=== PATIENT | female | born 1985 | race Caucasian/White ===

== ENCOUNTER 2019-12-30 18:10 | Inpatient (IN) | payer SELFPAY ==
[~2019-12-30] VITALS: Ht 162.6 cm; Wt 50.3 kg
[2019-12-30] MEDS ORDERED: ADDERALL 10 MG10 MG (18:16)
[2019-12-30] MEDS ORDERED: AMBIEN10 MG PO (18:16)
[2019-12-30] MEDS ORDERED: SODIUM CHLORIDE 0.9% 1000ML 1,000 ML IV ONE ×2 (18:30)
--- NOTE | 2019-12-30 18:32 | Emergency Department Note ---
History of Present Illnes History of Present Illness Chief Complaint: COVID PUI History of Present Illness This is a 34 year old femaleALLED 911 FROM HOME FOR COVID SYMPTOMS GOING ON FOR 4 WKS. PT INCREDIBLY PALE, EMS STATES IN DAYLIGHT PT APPEARED JAUNDICE. PT AAOX4. PT STATES HX OF ANEMIA THAT HAS REQUIRES BLOOD TRANSFUSIONS. HX OF GASTRIC BYPASS 8 YRS AGO. PT HYPOTN ON SCENE OF 80/50'S . PT REPORTS SHE HAS BEEN ILL FOR ABOUT 3 TO 4 WEEKS WITH COUGH, DECREASED APPETITE, NOT EATING OR DRINKING, ALSO REPORTS SHE STOOD UP TODAY AND COLLAPSED TO FLOOR WHICH IS WHY SHE CALLED EMS. 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 Arrival Mode: [facility] Treatment JOURNEYMAN MECHANIC: IV, See EMS Report Additional Treatment JOURNEYMAN MECHANIC: 20 LEFT AC Onset (how long ago): week(s) (3) Location: ALL OVER Quality: WEAKNESS, COUGH, DECREASED APPETITE Radiation: Reports non-radiation Severity: severe Onset quality: gradual Duration (how long): week(s) (3) Timing of current episode: constant Progression: worsening Chronicity: recurrent Context: Reports recent illness (COUGH, ); Denies recent surgery, Denies trauma/injury Relieving factors: none Exacerbating factors: movement Associated symptoms: Reports cough Treatments prior to arrival: none Past Medical/Family History Physician Review I have reviewed the patient's past medical and family history. Any updates have been documented here. Past Medical History Recent Fever: No Clinical Suspicion of Infectio: No New/Unexplained Change in Ment: No Past Medical History: Hypertension, Anemia Other Medical History: ADHD Past Surgical History: Bariatric Surgery Other Surgery: GASTRIC BYPASS 2011 Social History Smoking Cessation: Never Smoker Alcohol Use: None Any Illegal Drug Use: No Physically hurt or threatened: No Family History Family history of heart diseas: No Review of Systems Review of Systems Constitutional: Reports as per HPI EENTM: Reports no symptoms Cardiovascular: Reports no symptoms Respiratory: Reports as per HPI Gastrointestinal: Reports no symptoms Genitourinary: Reports no symptoms Musculoskeletal: Reports no symptoms Integumentary: Reports no symptoms Neurological: Reports as per HPI Psychological: Reports no symptoms Endocrine: Reports no symptoms Hematological/Lymphatic: Reports no symptoms Physical Exam Related Data Allergies: Coded Allergies: imipenem (Verified Allergy, Intermediate, anemia, 12/30/19) Triage Vital Signs Vital Signs Date Time Temp Pulse Resp B/P (MAP) Pulse Ox O2 Delivery O2 Flow Rate FiO2 12/30/19 18:12 99.3 78 16 84/54 100 Room Air Vital signs reviewed: Yes Physical Exam CONSTITUTIONAL Constitutional: Present well-developed, Present distressed (MILD), Present ill appearing, Present other (MALNOURISHED, EMACIATED) HENT HENT: Present normocephalic, Present atraumatic, Present mucosae dry (SEVERE), Present nose normal HENT L/R: Present left ext ear normal, Present right ext ear normal EYES Eyes: Reports PERRL, Reports other (SEVERE PALE CONJUCTIVA) NECK Neck: Present ROM normal PULMONARY Pulmonary: Present effort normal, Present breath sounds normal CARDIOVASCULAR Cardiovascular: Present regular rhythm, Present heart sounds normal, Present capillary refill normal, Present normal rate GASTROINTESTINAL Abdominal: Present soft, Present nontender, Present bowel sounds normal GENITOURINARY Genitourinary: Present exam deferred SKIN Skin: Present warm, Present dry, Present pale (SEVERE) MUSCULOSKELETAL Musculoskeletal: Present ROM normal NEUROLOGICAL Neurological: Present alert, Present oriented x 3, Present no gross motor or sensory deficits PSYCHOLOGICAL Psychological: Present mood/affect normal, Present judgement normal Results Laboratory Laboratory Laboratory Tests Test 12/30/19 20:08 12/30/19 18:43 12/30/19 18:26 Urine Color Yellow (YELLOW) Urine Clarity Turbid (CLEAR) Urine pH 5.5 (5 - 7) Urine Specific [place] 1.020 (1.010-1.025) Urine Protein 2+ (NEGATIVE) Urine Glucose (UA) Negative (NEGATIVE) Urine Ketones Negative (NEGATIVE) Urine Blood Moderate (NEGATIVE) Urine Nitrite Positive (NEGATIVE) Urine Bilirubin Negative (NEGATIVE) Urine Urobilinogen 2.0 mg/dL (0.2 - 1) Urine Leukocyte Esterase Small (NEGATIVE) Urine RBC 11-20 /HPF (0-5) Urine WBC >50 /HPF (0-5) Urine Epithelial Cells Moderate /LPF (NONE) Urine Bacteria Moderate /HPF (NONE) Urine Opiates Screen Positive (NEGATIVE) Urine Methadone Screen Negative (NEGATIVE) Urine Barbiturates Screen Negative (NEGATIVE) Urine Phencyclidine Screen Negative (NEGATIVE) Urine Amphetamines Screen Negative (NEGATIVE) Urine Methamphetamines Screen Negative (NEGATIVE) Urine Benzodiazepines Screen Positive (NEGATIVE) Urine Cocaine Screen Negative (NEGATIVE) Urine Cannabinoids Screen Negative (NEGATIVE) Lactic Acid Level 1.6 mmol/L (0.5-2.0) White Blood Count 25.20 x10e3/uL (4.8-10.8) Red Blood Count 2.18 x10e6/uL (3.6-5.1) Hemoglobin 6.3 g/dL (12.0-16.0) Hematocrit 20.3 % (34.2-44.1) Mean Corpuscular Volume 93.1 fL (81-99) Mean Corpuscular Hemoglobin 28.9 pg (28-32) Mean Corpuscular Hemoglobin Concent 31.0 g/dL (31-35) Red Cell Distribution Width 15.1 % (11.7-14.4) Platelet Count 570 x10e3/uL (140-360) Neutrophils (%) (Auto) 88.1 % (38.7-80.0) Lymphocytes (%) (Auto) 4.6 % (18.0-39.1) Monocytes (%) (Auto) 4.6 % (4.4-11.3) Eosinophils (%) (Auto) 0.3 % (0.0-6.0) Basophils (%) (Auto) 0.4 % (0.0-1.0) Neutrophils # (Auto) 22.2 (2.1-6.9) Lymphocytes # (Auto) 1.2 (1.0-3.2) Monocytes # (Auto) 1.2 (0.2-0.8) Eosinophils # (Auto) 0.1 (0.0-0.4) Basophils # (Auto) 0.1 (0.0-0.1) Absolute Immature Granulocyte (auto 0.51 x10e3/uL (0-0.1) Sodium Level 129 mmol/L (136-145) Potassium Level 4.2 mmol/L (3.5-5.1) Chloride Level 97 mmol/L (98-107) Carbon Dioxide Level 21 mmol/L (22-29) Anion Gap 15.2 mmol/L (8-16) Blood Urea Nitrogen 38 mg/dL (7-26) Creatinine 1.95 mg/dL (0.57-1.11) Estimat Glomerular Filtration Rate 29 ML/MIN (60-) BUN/Creatinine Ratio 19 (6-25) Glucose Level 136 mg/dL (74-118) Calcium Level 7.3 mg/dL (8.4-10.2) Total Bilirubin 0.8 mg/dL (0.2-1.2) Aspartate Amino Transf (AST/SGOT) 39 IU/L (5-34) Alanine Aminotransferase (ALT/SGPT) 49 IU/L (0-55) Alkaline Phosphatase 221 IU/L (40-150) Creatine Kinase 19 IU/L (29-168) Creatine Kinase MB 0.40 ng/mL (0-5.0) Troponin I 0.012 ng/mL (0-0.300) Total Protein 6.0 g/dL (6.5-8.1) Albumin 2.4 g/dL (3.5-5.0) Globulin 3.6 g/dL (2.3-3.5) Albumin/Globulin Ratio 0.7 (0.8-2.0) Amylase Level 193 U/L (25-125) Lipase 264 U/L (8-78) Human Chorionic Gonadotropin, Qual Negative (NEGATIVE) Coronavirus (PCR) Not detected (NOTDETECTED) Laboratory Tests Test 12/30/19 20:08 12/30/19 18:43 12/30/19 18:26 Lactic Acid Level 1.6 mmol/L (0.5-2.0) White Blood Count 25.20 x10e3/uL (4.8-10.8) Red Blood Count 2.18 x10e6/uL (3.6-5.1) Hemoglobin 6.3 g/dL (12.0-16.0) Hematocrit 20.3 % (34.2-44.1) Mean Corpuscular Volume 93.1 fL (81-99) Mean Corpuscular Hemoglobin 28.9 pg (28-32) Mean Corpuscular Hemoglobin Concent 31.0 g/dL (31-35) Red Cell Distribution Width 15.1 % (11.7-14.4) Platelet Count 570 x10e3/uL (140-360) Neutrophils (%) (Auto) 88.1 % (38.7-80.0) Lymphocytes (%) (Auto) 4.6 % (18.0-39.1) Monocytes (%) (Auto) 4.6 % (4.4-11.3) Eosinophils (%) (Auto) 0.3 % (0.0-6.0) Basophils (%) (Auto) 0.4 % (0.0-1.0) Neutrophils # (Auto) 22.2 (2.1-6.9) Lymphocytes # (Auto) 1.2 (1.0-3.2) Monocytes # (Auto) 1.2 (0.2-0.8) Eosinophils # (Auto) 0.1 (0.0-0.4) Basophils # (Auto) 0.1 (0.0-0.1) Absolute Immature Granulocyte (auto 0.51 x10e3/uL (0-0.1) Sodium Level 129 mmol/L (136-145) Potassium Level 4.2 mmol/L (3.5-5.1) Chloride Level 97 mmol/L (98-107) Carbon Dioxide Level 21 mmol/L (22-29) Anion Gap 15.2 mmol/L (8-16) Blood Urea Nitrogen 38 mg/dL (7-26) Creatinine 1.95 mg/dL (0.57-1.11) Estimat Glomerular Filtration Rate 29 ML/MIN (60-) BUN/Creatinine Ratio 19 (6-25) Glucose Level 136 mg/dL (74-118) Calcium Level 7.3 mg/dL (8.4-10.2) Total Bilirubin 0.8 mg/dL (0.2-1.2) Aspartate Amino Transf (AST/SGOT) 39 IU/L (5-34) Alanine Aminotransferase (ALT/SGPT) 49 IU/L (0-55) Alkaline Phosphatase 221 IU/L (40-150) Creatine Kinase 19 IU/L (29-168) Creatine Kinase MB 0.40 ng/mL (0-5.0) Troponin I 0.012 ng/mL (0-0.300) Total Protein 6.0 g/dL (6.5-8.1) Albumin 2.4 g/dL (3.5-5.0) Globulin 3.6 g/dL (2.3-3.5) Albumin/Globulin Ratio 0.7 (0.8-2.0) Amylase Level 193 U/L (25-125) Lipase 264 U/L (8-78) Human Chorionic Gonadotropin, Qual Negative (NEGATIVE) Coronavirus (PCR) Not detected (NOTDETECTED) Lab results reviewed: Yes Imaging Imaging results reviewed: Yes Impressions Procedure: [id number] DX/CHEST SINGLE (PORTABLE) Exam Date: 12/30/19 Exam Time: 1909 REPORT STATUS: Signed Examination: Single AP view of the chest. COMPARISON: None. INDICATION: Cough IMPRESSION: 1. Lines and Tubes: None 2. Lungs are grossly clear. No consolidation or effusion. 3. Cardiomediastinal silhouette is normal. Pulmonary vasculature is normal. 4. No acute bony abnormalities. Signed by: Dr. Julianna Kimble M.D. on 12/30/2019 7:43 PM Dictated By: JULIANNA KIMBLE MD 42 Transcribed By: EMIGDIO on 12/30/191942 COPY TO: ALLA LE MD~ Procedure: [id number] CT/CT ABDOMEN/PELVIS WO Exam Date: 12/30/19 Exam Time: 1934 REPORT STATUS: Signed EXAMINATION: CT of the abdomen and pelvis without contrast. TECHNIQUE: Spiral CT images of the abdomen and pelvis were performed from the lung bases to the lesser trochanters. No intravenous contrast was given per due to decreased GFR. Coronal and sagittal reformatted images were obtained. COMPARISON: None. CLINICAL HISTORY:Abdominal pain, COVID, cough and weakness DISCUSSION: ABSENCE OF INTRAVENOUS CONTRAST DECREASES SENSITIVITY FOR DETECTION OF FOCAL LESIONS AND VASCULAR PATHOLOGY. ABDOMEN/PELVIS: LOWER THORAX: Lung bases are clear. HEPATOBILIARY: No focal hepatic lesions. Mild prominence of the central intrahepatic bile ducts.. Mild dilation of the common bile duct, which measures 8.4 mm at the yesy hepatis and 8.9 mm at the pancreatic head. No radiopaque intraluminal filling defects. GALLBLADDER: Cholecystectomy clips. SPLEEN: No splenomegaly. PANCREAS: No focal masses or ductal dilatation. No peripancreatic stranding/inflammatory changes. ADRENALS: No adrenal nodules. KIDNEYS/URETERS: Bilateral renal enlargement and replacement of the parenchyma with innumerable hypodense lesions consistent with polycystic kidney disease. Multiple bilateral cysts are hyperdense. A 1.3 cm hyperdense cyst in the anterior superior left kidney (series 2, image 22) measures 91 HU, and a partially exophytic 1.8 cm lesion in the right superior pole (series 2, image 27) measures 72 HU, consistent with hemorrhagic cysts. Several other mostly exophytic hyperdense lesions in the left superior pole which measure 1.8 and 2.1 cm (series 2, images 16 and 18) and 67HU likely represent hemorrhagic cysts. 3 mm nonobstructing calculus in the right interpolar region (series 2, image 44). No other renal or ureteral calculi. No hydronephrosis or definite evidence of obstruction. PELVIC ORGANS/BLADDER: Minimal circumferential bladder wall thickening. No focal lesions. As unremarkable. No adnexal masses. PERITONEUM/RETROPERITONEUM: No free air or fluid. LYMPH NODES: Mildly enlarged left paraortic lymph nodes which measure approximately 1.0-1.2 cm in short axis (series 2, images 26, 30 and 37). Difficult to assess for intra-abdominal adenopathy. No pelvic or inguinal nodes. VESSELS: Unremarkable for noncontrast exam. GI TRACT: Postoperative changes in the stomach and small bowel, with multiple sutures noted. No bowel dilation or evidence of obstruction. BONES AND SOFT TISSUES: No aggressive lytic or suspicious focal sclerotic lesions. Soft tissues are grossly unremarkable. IMPRESSION: 1. Exam limited given the lack of intravenous contrast. No bowel dilation or evidence of obstruction. No peripancreatic inflammatory changes to suggest pancreatitis. 2. Minimal circumferential bladder wall thickening. This may be secondary to cystitis. Correlate with urinalysis. 3. Findings consistent with marked polycystic kidney disease. Mildly enlarged left para-aortic lymph nodes may be reactive. 4. Mild dilation of the common bile duct likely reflects postcholecystectomy status. Signed by: Dr. Julianna Kimble M.D. on 12/30/2019 8:19 PM Dictated By: JULIANNA KIMBLE MD 18 Transcribed By: EMIGDIO on 12/30/192018 COPY TO: ALLA LE MD~ Assessment & Plan Medical Decision Making MDM PT WITH WEAKNESS, COUGH, AND H/O ANEMIA, BASED ON EXAM I SUSPECT PT IS SEVERELY ANEMIC CBC, CMP, EKG, CARDIAC ENZYMES, CXR, TYPE AND SCREEN, COVID 19, BLOOD CULTURE, LACTIC ACID, UA ORDERED TO EVAL FOR ANEMIA, ELECTROLYTE ABNORMALITY, COVID 19, PNEUMONIA, UTI, PANCREATITIS, NS 1 LITER IV BOLUS ORDERED 1846 H/H 6.3/20.3 2 UNITS PRBC'S ORDERED TO GIVE LACTIC ACID 1.6 1900 PT ALSO WITH A WBC OF 25K AND ELEVATED AMYLASE AND LIPASE, ZOSYN 2.225 GRAM IV ORDERED AND CT ABD/PEVLIS ORDERED TO EVAL FOR PANCREATITIS, GALLSTONES, COLITIS, BOWEL OBSTRUCTION PT'S HYPOTENSION IS RELATED TO HER ANEMIA AND DEHYDRATION I SPOKE WITH DR BEDOLLA AND DR BROCK Assessment & Plan Final Impression: (1) Symptomatic anemia (2) Leukocytosis (3) Renal insufficiency (4) Dehydration (5) Elevated lipase (6) Hypovolemic shock (7) Pancreatitis (8) UTI (urinary tract infection) Depart Disposition: ADMITTED Last Vital Signs Date Time Temp Pulse Resp B/P (MAP) Pulse Ox O2 Delivery O2 Flow Rate FiO2 12/30/19 18:12 99.3 78 16 84/54 100 Room Air Home Meds Reported Medications Amphet Asp/Amphet/D-Amphet (ADDERALL 10 MG TABLET) 10 Mg Tablet 12/30/19 Zolpidem Tartrate (AMBIEN) 10 Mg Tablet, 10 MG PO HS PRN for SLEEP, #30 TAB 12/30/19 Medications in the ED Sodium Chloride 1,000 ml @ 999 mls/hr Q1H1M ONCE IV ; Start 12/30/19 at 18:30; Stop 12/30/19 at 19:30 Sodium Chloride 1,000 ml @ 999 mls/hr Q1H1M ONCE IV ; Start 12/30/19 at 18:30; Stop 12/30/19 at 18:23; Status DC ALLA LE MD Dec 30, 2019 18:32
--- OUTSIDE RECORDS SUMMARY | 2019-12-30 18:33 | XMS REPORT | Continuity of Care Document ---
Author Author [facility] t Organization [facility] Address [address] [place] [address] Phone Unavailable Care Team Providers Care Hand Mixer Name Role Phone Denise MAJANO, Jaycob Aburtoh PCP Shankar MAJANO, Migel Attphys Rayshawn Sosa MD, Lisa Attphys Ta Acharya Attphys Rayshawn Sosa MD, Lisa Admphys Payers Payer Name Policy Type Policy Number Effective Date Expiration Date S ource Problems Condition Name Condition Details Condition Category Status Onset Date Resolution Date Last Treatment Date Treating Clinician Comments Source Acute anemia Acute anemia Disease Active 2018-12-11 00:00:00 Gary Wilson Menorrhagia Menorrhagia Disease Active 2015-06-16 00:00:00 Gary Wilson Polycystic kidney disease,adult type Polycystic kidney disea se,adult type Disease Active 2015-06-16 00:00:00 Gary Wilson Syncope Syncope Disease Active 2015-06-16 00:00:00 Gary Wilson Tachycardia Tachycardia Disease Active 2015-06-16 00:00:00 Gary Wilson Primary ciliary dyskinesia Primary ciliary dyskinesia Disease Active 2015-06-16 00:00:[address] Renal failure Renal failure Disease Active 2015-06-16 00:00:00 Gary Wilson Hypotensive Hypotensive Disease Active 2015-06-16 00:00:00 Gary Wilson Allergies, Adverse Reactions, Alerts Allergy Name Allergy Type Status Severity Reaction(s) Onset Date Inacti ve Date Treating Clinician Comments Source IMPENEM DA Active SV 2018-12-02 00:00:00 [facility] imipenem DA Active SV 2018-12-02 00:00:00 [facility] Apetimar Propensity to adverse reactions to drug Active Other (See Comments) 2015-06-16 00:00:00 Bone Marrow Gary Meth odist Other Propensity to adverse reactions Active 00:00:00 APETAMIN? Gary Wilson Social History Social Habit Start Date Stop Date Quantity Comments Source History of tobacco use Cigarette Smoker Gary Wilson History SDOH Alcohol Std Drinks Gary Wilson History SDOH Alcohol Binge Gary Wilson Sex Assigned At Nilda Wilson Cigarettes smoked current (pack per day) - Reported 00:00:00 2018-12-11 00:00:00 Gary Wilson Alcohol intake 2018-12-11 00:00:00 2018-12-11 00:00:00 Current non-drinker of alcohol (finding) Gary Wilson History SDOH Alcohol Frequency 2018-07-01 00:00:00 2018-07-01 00:00:0 0 1 Gary Wilson Smoking Status Start Date Stop Date Source Current every day smoker 2018-12-11 00:00:00 Nilda Wilson Medications Ordered Medication Name Filled Medication Name Start Date Stop Da te Current Medication? Ordering Clinician Indication Dosage Frequency Signature (SIG) Comments Components Source sucralfate (CARAFATE) 1 gram tablet 2018-12-12 11:30:25 Yes 1g Q.25D Take 1 g by mouth 4 (four) times a day. Gary Wilson ferrous sulfate 325 (65 FE) MG tablet 2018-12-12 11:30:25 Yes 325mg Q.[id number] Take 325 mg by mouth 3 (three) times a day with meals. Gary Wilson acetaminophen-codeine (TYLENOL WITH CODEINE #3) 300-30 mg pe r tablet 2018-12-12 11:30:25 Yes acute pain 1{tbl} Q6H Take 1 tablet by mouth every 6 (six) hours as needed for moderate pain .Acute Pain. Gary Wilson multivitamin with minerals tablet 2018-12-12 11:30:25 Yes 1{tbl} QD Take 1 tablet by mouth daily. Gary Enriquez st fexofenadine (JON) 180 MG tablet 2018-12-12 11:30:25 Ye s 180mg Q24H Take 180 mg by mouth daily as needed. Anup Wilson zolpidem (AMBIEN) 10 mg tablet 2015-12-17 00:00:00 Yes TK 1 T PO QHS Gary Wilson LORAZepam (ATIVAN) 1 MG tablet 2015-12-16 00:00:00 Yes TK 1 TS PO BID Gary Wilson dextroamphetamine-amphetamine (ADDERALL) 30 mg tablet 2015-11-16 00:00:00 Yes TK 1 T PO BID Gary Seals ethodist Procedures This patient has no known procedures. Plan of Care Planned Activity Planned Date Details Comments Source Future Scheduled Test 2019-12-16 00:00:00 INFLUENZA VACCINE [code = INFLUENZA VACCINE] Gary Wilson Future Scheduled Test 2005 00:00:00 Screening for ashley gnant neoplasm of cervix (procedure) [code = 487673267] Gary cox Encounters Start Date/Time End Date/Time Encounter Type Admission Type Attendi [facility] Emergency Department Facility Care Department Encounter ID Source 2018-12-01 21:39:36 2018-12-02 02:36:00 Emergency Elijahlat Migel quintana [facility] ([facility]) [id number] 2018-11-19 20:49:00 2018-11-21 15:15:00 Hospital Encounter janeen ReedergeorgeLisa [facility] ([facility]) [id number] 2018-11-20 00:00:00 2018-11-20 00:00:00 Prep For Surgery C o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 Nausea and vomiting. COMPARISON: No relevant priors available. TECHNIQUE: Helical imaging was performed diaphragm through the symphysis with multiplanar reconstructions. IV CONTRAST: 100 mL Isovue-300. GI CONTRAST: None. CT imaging performed at this location utilizes radiation dose optimization techniques which include one or more of the following: - Automated exposure control -Adjustment of the mA and/or kV according to patient size -Use of iterative reconstruction technique CT Radiation Dose DLP 121.60 mGy-cm FINDINGS: LOWER CHEST: The lung bases are clear. LIVER: No focal liver lesions. Liver size and contour normal. GALLBLADDER: Cholecystectomy. Prominence of the intra and extrahepatic bile ducts probably related to the previous cholecystectomy. SPLEEN: Normal. PANCREAS: Normal. ADRENALS: Normal. KIDNEYS: Numerous bilateral renal cysts of varying size. No hydronephrosis, hydroureter or perinephric fluid. BOWEL: Large and small bowel including appendix appear normal. Patient has undergone previous gastric and small bowel surgery. No evidence for obstruction. PERITONEUM: No free intraperitoneal fluid or air. RETROPERITONEUM: No adenopathy. The aorta is normal. PELVIS: No pelvic mass. The urinary bladder is normal. PAGE 1 Signed Report (CONTINUED) Name: ROSI SIMEON [facility] [place] : 1985 Age/S: 33 / [address] Unit #: [id number] Loc: [place] [address] Phys : Tere Silva NP Acct: [id number] Dis Date: Status: REG ER PHONE #: [phone] Exam Date: 03/21/20192153 FAX #: [phone] Reason: ACUTE ABD PAIN EXAMS: CPT CODE: [id number] CT ABD PELVIS W/CONT 84623 <Continued> MUSCULOSKELETAL: The skeleton is intact. IMPRESSION: 1. Polycystic kidney disease. 2. Common duct and intrahepatic bile duct dilatation most likely related to previous cholecystectomy. Correlate with serum bilirubin levels. END IMPRESSION WR1-H at 2210 Re ported and signed by: Samson Contreras M.D. CC: Tere Silva NP Technologist:RT Janeth(R) CTDI: DLP: Trnscb Date/Time: 03/21/2019 (2210) SamraRTB Orig Print D/T: S: 03/21/2019 (2213) PAGE 2 Signed Report COMPREHENSIVE METABOLIC PANEL 2019-03-21 21:36:00 Test Item SODIUM (test code = NA) 140 mEq/L 134-147 N POTASSIUM (test code = K) 4.1 mEq/L 3.4-5.0 N CHLORIDE (test code = CL) 106 mEq/L 100-108 N CARBON DIOXIDE (test code = CO2) 33 mEq/L 21-33 N ANION GAP (test code = GAP) 5 0-20 N GLUCOSE (test code = GLU) 76 mg/dL 70-110 N BLOOD UREA NITROGEN (test code = BUN) 25 mg/dL 7-18 H GLOMERULAR FILTRATION RATE (test code = GFR) 95.8 105-110 L Units of measure = ml/min/1.73 m2 CREATININE (test code = CREAT) 0.7 mg/dL 0.6-1.3 N TOTAL PROTEIN (test code = PROT) 7.2 g/dL 6.4-8.2 N ALBUMIN (test code = ALB) 2.90 g/dL 3.4-5.0 L CALCIUM (test code = CA) 8.7 mg/dL 8.0-10.5 N BILIRUBIN TOTAL (test code = BILT) 0.1 MG/DL <1.5 N SGOT/AST (test code = AST) 9 IUnit/L 15-37 L SGPT/ALT (test code = ALT) 11 IUnit/L 15-65 L ALKALINE PHOSPHATASE TOTAL (test code = ALKP) 97 IUnit/L 20-125 N [id number] 21:36:00* Test Item Value Reference Range Interpretation Comments LIPASE (test code = LIP) 95 IUnit/L 73-393 N HCG SERUM [id number] 21:36:00* Test Item Value Reference Range Interpretation Comments HCG SERUM QUAL (test code = HCGQL) SERUM NEGATIVE NEGATIVE [id number] 21:36:00* Test Item Value Reference Range Interpretation Comments TROPONIN-I (test code = TROPI) < 0.015 ng/mL 0.000-0.045 N Negative: <= 0.045 Positive: >= 0.046 Correlation with serial results, other cardiac markers andclinical findings is necessary to determine the clinicalsignificance of this result. Results using different methodologies should not be comparedto one another as quantitative results may vary by method. COMPREHENSIVE METABOLIC [id number] 21:27:00* Test Item Value Reference Range Interpretation Comments SODIUM (test code = NA) mEq/L 134-147 POTASSIUM (test code = K) mEq/L 3.4-5.0 CHLORIDE (test code = CL) mEq/L 100-108 CARBON DIOXIDE (test code = CO2) mEq/L 21-33 ANION GAP (test code = GAP) 0-20 GLUCOSE (test code = GLU) mg/dL 70-110 BLOOD UREA NITROGEN (test code = BUN) mg/dL 7-18 GLOMERULAR FILTRATION RATE (test code = GFR) 105-110 CREATININE (test code = CREAT) mg/dL 0.6-1.3 TOTAL PROTEIN (test code = PROT) g/dL 6.4-8.2 ALBUMIN (test code = ALB) g/dL 3.4-5.0 CALCIUM (test code = CA) mg/dL 8.0-10.5 BILIRUBIN TOTAL (test code = BILT) MG/DL <1.5 SGOT/AST (test code = AST) IUnit/L 15-37 SGPT/ALT (test code = ALT) IUnit/L 15-65 ALKALINE PHOSPHATASE TOTAL (test code = ALKP) IUnit/L 20-125 [id number] 21:27:00* Test Item Value Reference Range Interpretation Comments LIPASE (test code = LIP) IUnit/L 73-393 HCG SERUM [id number] 21:27:00* Test Item Value Reference Range Interpretation Comments HCG SERUM QUAL (test code = HCGQL) SERUM NEGATIVE NEGATIVE [id number] 21:27:00* Test Item Value Reference Range Interpretation Comments TROPONIN-I (test code = TROPI) ng/mL 0.000-0.045 CBC W/AUTO [id number] 21:26:00* Test Item Value Reference Range Interpretation Comments WHITE BLOOD CELL (test code = WBC) 4.90 x10 3/uL 4.5-11.0 N RED BLOOD CELL (test code = RBC) 3.78 x10 6/uL 3.54-5.02 N HEMOGLOBIN (test code = HGB) 11.1 g/dL 11.0-15.0 N HEMATOCRIT (test code = HCT) 36.5 % 33.0-45.0 N MEAN CELL VOLUME (test code = MCV) 96.6 fL 81.0-99.0 N MEAN CELL HGB (test code = MCH) 29.4 pg 27.0-33.0 N MEAN CELL HGB CONCETRATION (test code = MCHC) 30.4 g/dL 33.0-37. 0 L RED CELL DISTRIBUTION WIDTH CV (test code = RDW) 15.5 % 11.5- 14.5 H RED CELL DISTRIBUTION WIDTH SD (test code = RDW-SD) 55.3 fL 37 .0-54.0 H PLATELET COUNT (test code = PLT) 286 x10 3/uL 150-400 N MEAN PLATELET VOLUME (test code = MPV) 9.8 fL 7.0-9.0 H NEUTROPHIL % (test code = NT%) 71.7 % 56.0-77.0 N IMMATURE GRANULOCYTE % (test code = IG%) 0.2 % 0.0-2.0 N LYMPHOCYTE % (test code = LY%) 19.2 % 14.0-32.0 N MONOCYTE % (test code = MO%) 7.3 % 4.8-9.0 N EOSINOPHIL % (test code = EO%) 1.4 % 0.3-3.7 N BASOPHIL % (test code = BA%) 0.2 % 0.0-2.0 N NUCLEATED RBC % (test code = NRBC%) 0.0 % 0-0 N NEUTROPHIL # (test code = NT#) 3.51 x10 3/uL 2.0-7.6 N IMMATURE GRANULOCYTE # (test code = IG#) 0.01 x10 3/uL 0.00-0.03 N LYMPHOCYTE # (test code = LY#) 0.94 x10 3/uL 1.0-3.8 L MONOCYTE # (test code = MO#) 0.36 x10 3/uL 0.1-0.8 N EOSINOPHIL # (test code = EO#) 0.07 x10 3/uL 0.0-0.2 N BASOPHIL # (test code = BA#) 0.01 x10 3/uL 0.0-0.2 N NUCLEATED RBC # (test code = NRBC#) 0.00 x10 3/uL 0.0-0.1 N MANUAL DIFF REQUIRED (test code = MDIFF) NO - XR CHEST 1 [id number] 20:02:00 FAX: Tere Silva NP [phone] [place]: St: PRE Name: ROSI PATRICIO [facility] : [birth year] Age/S: 33/F [address] [place] [address] Unit #: [id number] Loc: [place] [address] Phys: Tere Silva NP Acct: [id number] Dis Date: Status: PRE ER PHONE #: [phone] Exam Date: 03/21/20191958 FAX #: [phone] Reason: Abdominal Pain EXAMS: CPT CODE: [id number] XR CHEST 1 V 13846 1 VIEW CXR. PORTABLE EXAM 7:39 PM HISTORY: Abdominal pain. COMPARISON: No rel evant priors available. The lungs are clear with normal pulmonary vasculature. Cardiomediastinal silhouette normal. No pleural abnormality . Bony thorax intact. IMPRESSION: Alyssa l exam. END OF IMPRESSION * SL: WR1-H Ruthy tirado Signed by Vinayak Contreras on 03/21/2019 a t 2001 Reported and signed by: Samson love M.D. CC: Tere Silva NP Technologist: BIBI Flor) Quentin crd Date/Time/By: 03/21/2019 (2001) : By: Jimmie Orig Print D/T: S: 03/21/2019 (2004) PAGE 1 Signed Report DRUGS OF ABUSE SCREEN [id number] 05:41:00 * Test Item Value Reference Range Interpretation Comments URN COCAINE (test code = COCAURN) NEGATIVE NEGATIVE URN CANNABINOIDS (test code = CANNABURN) POSITIVE NEGATIVE A URN AMPHETAMINE (test code = AMPHETURN) NEGATIVE NEGATIVE URN BARBITURATE (test code = BARBITURN) NEGATIVE NEGATIVE URN BENZODIAZEPINE (test code = BENZOURN) NEGATIVE NEGATIVE Cut-off value:200 ng/mL URN OPIATES (test code = OPIATURN) POSITIVE NEGATIVE A Cut-off value:2000 ng/mL URN PHENCYCLIDINE (PCP) (test code = PHENCURN) NEGATIVE NEGATIV E Cutoffs:Barbiturates 200 ng/mLBenzodiazepines 200 ng/mLTHC Cannabinoids 50 ng/mLOpiates(Morphine) 2000 ng/mLAmphetamine 1000 ng/mLCocaine 300 ng/mLPCP phencyclidine 25 ng/mL Unconfirmed screening results shouldnot be used for non-medical purposes. URINALYSIS [id number] 05:22:00* Test Item Value Reference Range Interpretation Comments UA COLOR (test code = COLU) YELLOW YEL/STRAW UA APPEARANCE (test code = APPU) CLEAR CLEAR UA GLUCOSE DIPSTICK (test code = DGLUU) NEGATIVE NEGATIVE UA BILIRUBIN DIPSTICK (test code = BILU) NEGATIVE NEGATIVE UA KETONE DIPSTICK (test code = KETU) NEGATIVE NEGATIVE UA SPECIFIC GRAVITY (test code = SGU) 1.050 1.005-1.030 H UA BLOOD DIPSTICK (test code = KOBY) NEGATIVE NEGATIVE UA PH DIPSTICK (test code = ADRIENNE) 6.0 5.0-7.0 N UA PROTEIN DIPSTICK (test code = PROU) NEGATIVE NEGATIVE UA UROBILINIOGEN DIPSTICK (test code = URO) 0.2 mg/dL 0.2-1.0 UA NITRITE DIPSTICK (test code = PATRICIO) NEGATIVE NEGATIVE UA LEUKOCYTE ESTERASE DIPSTICK (test code = LEUU) NEGATIVE NEGA TIVE UA RBC (test code = RBCU) 0-3 RBC/HPF 0-3 UA WBC NO REFLEX (test code = WBCUCL) 0-3 WBC/HPF 0-3 UA BACTERIA (test code = BACU) NONE SEEN /HPF NONE SEEN UA SQUAMOUS CELLS (test code = SQU) 0-5 /HPF NONE SEEN UR HCG [id number] 05:13:00* Test Item Value Reference Range Interpretation Comments UR HCG QUAL (test code = HCGQLU) NEGATIVE NEGATIVE BASIC METABOLIC [id number] 04:13:00* Test Item Value Reference Range Interpretation Comments SODIUM (test code = NA) 140 mEq/L 134-147 N POTASSIUM (test code = K) 4.3 mEq/L 3.4-5.0 N CHLORIDE (test code = CL) 105 mEq/L 100-108 N CARBON DIOXIDE (test code = CO2) 33 mEq/L 21-33 N ANION GAP (test code = GAP) 6 0-20 N GLUCOSE (test code = GLU) 77 mg/dL 70-110 N BLOOD UREA NITROGEN (test code = BUN) 17 mg/dL 7-18 N GLOMERULAR FILTRATION RATE (test code = GFR) 82.1 105-110 L Units of measure = ml/min/1.73 m2 CREATININE (test code = CREAT) 0.8 mg/dL 0.6-1.3 N CALCIUM (test code = CA) 8.6 mg/dL 8.0-10.5 N HEPATIC FUNCTION [id number] 04:13:00* Test Item Value Reference Range Interpretation Comments TOTAL PROTEIN (test code = PROT) 6.7 g/dL 6.4-8.2 N ALBUMIN (test code = ALB) 3.20 g/dL 3.4-5.0 L BILIRUBIN TOTAL (test code = BILT) 0.20 mg/dL 0.0-1.0 N BILIRUBIN DIRECT (test code = BILD) < 0.10 MG/DL 0.0-0.30 BILIRUBIN INDIRECT (test code = BILIND) 0.10 MG/DL SGOT/AST (test code = AST) 12 IUnit/L 15-37 L SGPT/ALT (test code = ALT) 15 IUnit/L 15-65 N ALKALINE PHOSPHATASE TOTAL (test code = ALKP) 85 IUnit/L 20-125 N [id number] 04:13:00* Test Item Value Reference Range Interpretation Comments LIPASE (test code = LIP) 96 IUnit/L 73-393 N CBC W/AUTO [id number] 03:54:00* Test Item Value Reference Range Interpretation Comments WHITE BLOOD CELL (test code = WBC) 7.35 x10 3/uL 4.5-11.0 N RED BLOOD CELL (test code = RBC) 3.54 x10 6/uL 3.54-5.02 N HEMOGLOBIN (test code = HGB) 9.0 g/dL 11.0-15.0 L HEMATOCRIT (test code = HCT) 31.6 % 33.0-45.0 L MEAN CELL VOLUME (test code = MCV) 89.3 fL 81.0-99.0 N MEAN CELL HGB (test code = MCH) 25.4 pg 27.0-33.0 L MEAN CELL HGB CONCETRATION (test code = MCHC) 28.5 g/dL 33.0-37. 0 L RED CELL DISTRIBUTION WIDTH CV (test code = RDW) 21.4 % 11.5- 14.5 H RED CELL DISTRIBUTION WIDTH SD (test code = RDW-SD) 68.8 fL 37 .0-54.0 H PLATELET COUNT (test code = PLT) 438 x10 3/uL 150-400 H MEAN PLATELET VOLUME (test code = MPV) 9.9 fL 7.0-9.0 H NEUTROPHIL % (test code = NT%) 61.8 % 56.0-77.0 N IMMATURE GRANULOCYTE % (test code = IG%) 0.4 % 0.0-2.0 N LYMPHOCYTE % (test code = LY%) 29.8 % 14.0-32.0 N MONOCYTE % (test code = MO%) 5.9 % 4.8-9.0 N EOSINOPHIL % (test code = EO%) 1.1 % 0.3-3.7 N BASOPHIL % (test code = BA%) 1.0 % 0.0-2.0 N NUCLEATED RBC % (test code = NRBC%) 0.0 % 0-0 N NEUTROPHIL # (test code = NT#) 4.55 x10 3/uL 2.0-7.6 N IMMATURE GRANULOCYTE # (test code = IG#) 0.03 x10 3/uL 0.00-0.03 N LYMPHOCYTE # (test code = LY#) 2.19 x10 3/uL 1.0-3.8 N MONOCYTE # (test code = MO#) 0.43 x10 3/uL 0.1-0.8 N EOSINOPHIL # (test code = EO#) 0.08 x10 3/uL 0.0-0.2 N BASOPHIL # (test code = BA#) 0.07 x10 3/uL 0.0-0.2 N NUCLEATED RBC # (test code = NRBC#) 0.00 x10 3/uL 0.0-0.1 N MANUAL DIFF REQUIRED (test code = MDIFF) NO
--- OUTSIDE RECORDS SUMMARY | 2019-12-30 18:33 | XMS REPORT | Clinical Summary ---
Author Author [facility] Organization [facility] Address Unknown Phone Unavailable Care Team Providers Care Passenger Service Agent Name Role Phone Tom Walker MD PCP Allergies Comments Active Allergy Reactions Severity Noted Date Bone Marrow Apetimar Other (See 06/16/2015 Comments) APETAMIN? Other 06/16/2015 Medications End Date Status Medication Sig Dispensed Refills Start Date Active dextroamphetamine-ampheta TK 1 T PO 0 mine (ADDERALL) 30 mg BID 6 tablet Active zolpidem (AMBIEN) 10 mg TK 1 T PO QHS 1 tablet 6 Active LORAZepam (ATIVAN) 1 MG TK 1 TS PO 1 tablet BID 6 Active sucralfate (CARAFATE) 1 Take 1 g by 0 gram tablet mouth 4 (four) times a day. Active ferrous sulfate 325 (65 Take 325 mg 0 FE) MG tablet by mouth 3 (three) times a day with meals. Active acetaminophen-codeine Take 1 tablet 0 (TYLENOL WITH CODEINE #3) by mouth 300-30 mg per every 6 (six) tabletIndications: acute hours as pain needed for moderate pain .Acute Pain. Active multivitamin with Take 1 tablet 0 minerals tablet by mouth daily. Active fexofenadine (JON) Take 180 mg 0 180 MG tablet by mouth daily as needed. Active Problems Problem Noted Date Acute anemia 12/11/2018 Menorrhagia 06/16/2015 Polycystic kidney disease,adult type 06/16/2015 Syncope 06/16/2015 Tachycardia 06/16/2015 Primary ciliary dyskinesia 06/16/2015 Renal failure 06/16/2015 Hypotensive 06/16/2015 Social History Date Tobacco Use Types Packs/Day Years Used Current Every Day Smoker Cigarettes 0.5 Smokeless Tobacco: Never Used Drinks/Week oz/Week Comments Alcohol Use No Alcohol Habits Answer Date Recorded How often do you have a drink containing alcohol? Never 07/01/2018 How many drinks containing alcohol do you have on No t asked a typical day when you are drinking? How often do you have six or more drinks on one Not asked occasion? Sex Assigned at Date Recorded Not on file Industry Job Start Date Occupation Not on file Not on file Not on file Travel End Travel History Travel Start No recent travel history available. 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
--- NOTE | 2019-12-30 18:40 | NUR ---
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
[2019-12-30 18:41] LABS: BASOPHILS # (AUTO) 0.1 (0.0-0.1); BASOPHILS % 0.4 % (0.0-1.0); EOSINOPHILS # (AUTO) 0.1 (0.0-0.4); EOSINOPHILS % 0.3 % (0.0-6.0); LYMPHOCYTES # (AUTO) 1.2 (1.0-3.2); LYMPHOCYTES % 4.6 % (18.0-39.1); MEAN CORPUSCULAR HEMOGLOBIN 28.9 pg (28-32); MEAN CORPUSCULAR VOLUME 93.1 fL (81-99); MONOCYTES # (AUTO) 1.2 (0.2-0.8); MONOCYTES % 4.6 % (4.4-11.3); NEUTROPHILS # (AUTO) 22.2 (2.1-6.9); NEUTROPHILS % 88.1 % (38.7-80.0); PLATELET COUNT 570 x10e3/uL (140-360); RED BLOOD COUNT 2.18 x10e6/uL (3.6-5.1); RED CELL DISTRIBUTION WIDTH 15.1 % (11.7-14.4)
[2019-12-30 18:45] LABS: HEMATOCRIT 20.3 % (34.2-44.1); HEMOGLOBIN 6.3 g/dL (12.0-16.0)
[2019-12-30] MEDS ORDERED: SODIUM CHLORIDE 0.9% 250ML 250 ML IV ONE ×2 (18:45→20:30)
[2019-12-30 18:54] LABS: ALBUMIN 2.4 g/dL (3.5-5.0); ALBUMIN/GLOBULIN RATIO 0.7 (0.8-2.0); ANION GAP 15.2 mmol/L (8-16); CALCIUM 7.3 mg/dL (8.4-10.2); CREATININE, SERUM 1.95 mg/dL (0.57-1.11); POTASSIUM 4.2 mmol/L (3.5-5.1)
[2019-12-30 18:55] LABS: AMYLASE 193 U/L (25-125); LIPASE 264 U/L (8-78)
--- NOTE | 2019-12-30 19:00 | NUR ---
pt states that has not been compliant c taking iron pills for anemia x 1 year. pt encouraged to take medication as prescribed. risk and benefit discussed. pt remains c flat affect and does not verbalize intent to be compliant c medication.
[2019-12-30 19:01] LABS: CREATINE KINASE MB 0.4 ng/mL (0-5.0)
[2019-12-30] MEDS ORDERED: PIPERACILLIN/TAZO 2.25 GM 50 ML IV ONE (19:15)
--- NOTE | 2019-12-30 19:46 | Diagnostic Imaging Report ---
Examination: Single AP view of the chest. COMPARISON: None. INDICATION: Cough IMPRESSION: 1. Lines and Tubes: None 2. Lungs are grossly clear. No consolidation or effusion. 3. Cardiomediastinal silhouette is normal. Pulmonary vasculature is normal. 4. No acute bony abnormalities. Signed by: Dr. Mariusz Kimble M.D. on 12/30/2019 7:43 PM
--- NOTE | 2019-12-30 20:23 | Diagnostic Imaging Report ---
EXAMINATION: CT of the abdomen and pelvis without contrast. TECHNIQUE: Spiral CT images of the abdomen and pelvis were performed from the lung bases to the lesser trochanters. No intravenous contrast was given per due to decreased GFR. Coronal and sagittal reformatted images were obtained. COMPARISON: None. CLINICAL HISTORY:Abdominal pain, COVID, cough and weakness DISCUSSION: ABSENCE OF INTRAVENOUS CONTRAST DECREASES SENSITIVITY FOR DETECTION OF FOCAL LESIONS AND VASCULAR PATHOLOGY. ABDOMEN/PELVIS: LOWER THORAX: Lung bases are clear. HEPATOBILIARY: No focal hepatic lesions. Mild prominence of the central intrahepatic bile ducts.. Mild dilation of the common bile duct, which measures 8.4 mm at the yesy hepatis and 8.9 mm at the pancreatic head. No radiopaque intraluminal filling defects. GALLBLADDER: Cholecystectomy clips. SPLEEN: No splenomegaly. PANCREAS: No focal masses or ductal dilatation. No peripancreatic stranding/inflammatory changes. ADRENALS: No adrenal nodules. KIDNEYS/URETERS: Bilateral renal enlargement and replacement of the parenchyma with innumerable hypodense lesions consistent with polycystic kidney disease. Multiple bilateral cysts are hyperdense. A 1.3 cm hyperdense cyst in the anterior superior left kidney (series 2, image 22) measures 91 HU, and a partially exophytic 1.8 cm lesion in the right superior pole (series 2, image 27) measures 72 HU, consistent with hemorrhagic cysts. Several other mostly exophytic hyperdense lesions in the left superior pole which measure 1.8 and 2.1 cm (series 2, images 16 and 18) and 67HU likely represent hemorrhagic cysts. 3 mm nonobstructing calculus in the right interpolar region (series 2, image 44). No other renal or ureteral calculi. No hydronephrosis or definite evidence of obstruction. PELVIC ORGANS/BLADDER: Minimal circumferential bladder wall thickening. No focal lesions. As unremarkable. No adnexal masses. PERITONEUM/RETROPERITONEUM: No free air or fluid. LYMPH NODES: Mildly enlarged left paraortic lymph nodes which measure approximately 1.0-1.2 cm in short axis (series 2, images 26, 30 and 37). Difficult to assess for intra-abdominal adenopathy. No pelvic or inguinal nodes. VESSELS: Unremarkable for noncontrast exam. GI TRACT: Postoperative changes in the stomach and small bowel, with multiple sutures noted. No bowel dilation or evidence of obstruction. BONES AND SOFT TISSUES: No aggressive lytic or suspicious focal sclerotic lesions. Soft tissues are grossly unremarkable. IMPRESSION: 1. Exam limited given the lack of intravenous contrast. No bowel dilation or evidence of obstruction. No peripancreatic inflammatory changes to suggest pancreatitis. 2. Minimal circumferential bladder wall thickening. This may be secondary to cystitis. Correlate with urinalysis. 3. Findings consistent with marked polycystic kidney disease. Mildly enlarged left para-aortic lymph nodes may be reactive. 4. Mild dilation of the common bile duct likely reflects postcholecystectomy status. Signed by: Dr. Mariusz Kimble M.D. on 12/30/2019 8:19 PM
[2019-12-30 20:30] LABS: CLARITY,URINE TURBID (CLEAR); COLOR,URINE YELLOW (YELLOW); LEUKOCYTE ESTERASE ,URINE SMALL (NEGATIVE); NITRITE,URINE POSITIVE (NEGATIVE); PROTEIN,URINE DIPSTICK 2+ (NEGATIVE)
[2019-12-30 20:31] LABS: BILIRUBIN,URINE NEGATIVE (NEGATIVE); KETONES,URINE NEGATIVE (NEGATIVE); PHENCYCLIDINE SCREEN,URINE NEGATIVE (NEGATIVE)
[2019-12-30 20:32] LABS: AMPHETAMINES SCREEN,URINE NEGATIVE (NEGATIVE); BENZODIAZEPINES SCREEN,URINE POSITIVE (NEGATIVE)
[2019-12-30] MEDS: SODIUM CHLORIDE 0.9% 1000ML 1,000 ML IV SCH (20:32)
[2019-12-30] MEDS ORDERED: SODIUM CHLORIDE 0.9% 1000ML 1,000 ML ONE (20:33)
[2019-12-30 20:38] LABS: BACTERIA,URINE MODERATE /HPF; EPITHELIAL CELLS,URINE MODERATE /LPF; WBC,URINE (MAN) >50 /HPF (0-5)
[2019-12-30] MEDS ORDERED: MULTIVITAMINS- 12 INJECTION 10 ML, FOLIC ACID MDV 5 MG, THIAMINE HCL INJ 100 MG in SODI... IV ONE (20:45)
[2019-12-30] MEDS ORDERED: PIPERACILLIN/TAZO 2.25 GM 50 ML IV SCH (20:45)
[2019-12-30] MEDS ORDERED: ONDANSETRON HCL INJ 2MG/ML 2ML 2 MG/ML VIAL IV PRN (20:45)
[2019-12-30] MEDS ORDERED: ACETAMINOPHEN 325 MG TAB PO PRN (23:45)
[2019-12-30 23:56] VITALS: BP 90/65
[2019-12-31] VITALS (25 sets, daily range): BP systolic 79–136; BP diastolic 49–92
--- NOTE | 2019-12-31 | NUR ---
Pt. arrives to unit. Pt. denies having any personal belongings. RN offers to assist pt. with changing into hospital gown. Pt. declines. Pt. request narcotic pain medication, per provider, pt is only allowed Tylenol. Pt. oriented to room, and surroundings.
[2019-12-31] MEDS: ACETAMINOPHEN 325 MG TAB PO PRN ×2 (00:37→21:44)
--- NOTE | 2019-12-31 02:55 | History and Physical ---
CHIEF COMPLAINT: Generalized weakness. HISTORY OF PRESENT ILLNESS: Ms. Nunez is a 34-year-old female. She presented to the emergency room with the complaints of weakness. She reports that she has been generally feeling weak, has decreased appetite for 3-4 weeks, possibly cough as well. She stood up and she was feeling dizzy and almost collapsed to the floor, so she called EMS. She has a history of gastric bypass surgery in 2011 and since then, patient's appetite has gone down. She is malnourished and emaciated. In the emergency room, the patient's hemoglobin was 6.3, and creatinine was 1.95 with a lipase of 264. She underwent a CT of abdomen and pelvis in the emergency room, which showed no bowel dilatation or evidence of obstruction, circumferential bladder wall thickening, finding consistent with marked polycystic kidney disease. Mildly enlarged left para-aortic lymph nodes. Mild dilatation of common bile duct reflects post cholecystectomy status. REVIEW OF SYSTEMS: GENERAL: Denies any fever or chills. HEAD: Denies any head trauma. ENT: Denies any earache. CVS: Denies any chest pain. RESPIRATORY: Denies any shortness of breath. The rest of the review of systems are negative except as in HPI. PAST MEDICAL HISTORY: Gastric bypass surgery. FAMILY AND SOCIAL HISTORY: She does not smoke. Does not drink. PHYSICAL EXAMINATION: VITAL SIGNS: Temperature 98.1, pulse of 84, blood pressure 90/65. HEENT: Head is atraumatic and normocephalic. NECK: Supple. CHEST: Clear to auscultation bilaterally. Generally she appears to be very weak and pale. ABDOMEN: Soft. EXTREMITIES: No pedal edema. NEUROLOGIC: Awake and alert. LAB[place]: [place] [address], hemoglobin 6.3, MCV is 93.1, platelets 570. Chemistry; sodium 129, creatinine 1.95. COVID-19 is negative. Urine drug screen is positive for opioids and benzos. Urinalysis shows more than 50 WBCs. ASSESSMENT AND PLAN: Ms. Janine Nunez is a 34-year-old female. She presented to the emergency room with complaints of generalized weakness, found to be severely anemic, history of gastric bypass surgery. Current problem; 1. Dizziness, presyncope secondary to anemia. 2. Severe anemia, possibly blood loss versus nutritional deficiency secondary to gastric bypass surgery. 3. Urinary tract infection. 4. Polycystic kidneys per the CT abdomen reading. 5. Malnutrition and weight loss. 6. History of gastric bypass surgery. 7. Leukocytosis. 8. Acute kidney injury. PLAN: I will start the patient on IV hydration. 3-4 units of packed RBCs. Nephrology consult. GI consult. Consider hematology evaluation. If the patient does not improve, check B12, TSH, iron and TIBC levels. Agree with IV Zosyn for now. Possibly need ICU if the blood pressure does not stabilize after IV hydration and blood transfusion. MD MACK Vuong/MODL /[id number]
[2019-12-31] MEDS: SODIUM CHLORIDE 0.9% 1000ML 1,000 ML IV SCH ×3 (04:41→20:30)
[2019-12-31] MEDS ORDERED: PIPERACILLIN/TAZO 2.25 GM 50 ML IV SCH (08:00)
[2019-12-31] MEDS: PIPERACILLIN/TAZO 2.25 GM 50 ML IV SCH ×3 (08:33→20:44)
--- NOTE | 2019-12-31 08:50 | NUR ---
GAVE PACKET OF INFORMATION WITH COMMUNITY [employer] FOR ASSISTANCE WITH LOW TO NO INCOME TO PATIENT. RESOURCES THAT PATIENT MAY BE ABLE TO FOLLOW UP UPON DISCHARGE. PT EDUCATED ON EACH RESOURCE AND UNDERSTANDING HOW TO FOLLOW UP TO SEE IF QUALIFIED FOR EACH RESOURCE.
[2019-12-31 09:18] LABS: BASOPHILS # (AUTO) 0.2 (0.0-0.1); BASOPHILS % 0.5 % (0.0-1.0); EOSINOPHILS # (AUTO) 0.1 (0.0-0.4); EOSINOPHILS % 0.2 % (0.0-6.0); HEMATOCRIT 42.6 % (34.2-44.1); HEMOGLOBIN 13.9 g/dL (12.0-16.0); LYMPHOCYTES % 3.1 % (18.0-39.1); MEAN CORPUSCULAR HEMOGLOBIN 29.7 pg (28-32); MEAN CORPUSCULAR HGB CONC 32.6 g/dL (31-35); MONOCYTES # (AUTO) 1.4 (0.2-0.8); MONOCYTES % 4.4 % (4.4-11.3); NEUTROPHILS # (AUTO) 27.1 (2.1-6.9); NEUTROPHILS % 87.5 % (38.7-80.0); PLATELET COUNT 355 x10e3/uL (140-360); RED BLOOD COUNT 4.68 x10e6/uL (3.6-5.1)
[2019-12-31 09:57] LABS: % IRON SATURATION 86 % (15-50); IRON 132 ug/dL (50-170); TOTAL IRON BINDING CAPACITY 153 ug/dL (261-478); TRANSFERRIN 109 mg/dL (180-382)
[2019-12-31 10:12] LABS: ALBUMIN 2.6 g/dL (3.5-5.0); ALBUMIN/GLOBULIN RATIO 0.7 (0.8-2.0); ANION GAP 15.4 mmol/L (8-16); CALCIUM 7.8 mg/dL (8.4-10.2); CREATININE, SERUM 1.61 mg/dL (0.57-1.11); POTASSIUM 4.4 mmol/L (3.5-5.1)
--- NOTE | 2019-12-31 11:37 | Consultation ---
DATE OF CONSULTATION: 12/31/2019 REASON FOR CONSULTATION: Kidney injury. HISTORY OF PRESENT ILLNESS: This is a 34-year-old female with history of autosomal dominant polycystic kidney disease came with worsening appetite and feeling dizzy. She has seen Renal Service on and off, but has been about 4 to 5 years since she last saw Dr. Paredes. I do not have the actual chemistries from that time. There is a history of anemia, which predates her gastric bypass, according to her she came with a hemoglobin of 6.3. Decreased appetite, unable to put on weight. CT scan did show bladder wall thickening as well as marked polycystic kidney disease. There was no bowel obstruction per the report. Here she is able to keep clear liquids down. Blood pressure is on the low side, but I am not sure what her baseline is. Urine drug screen was of note positive for opiates and benzodiazepines. She does say she has a history of gastric bypass due to pain. It was revised, adhesions removed and since then has persistent pain. According to her after she saw the bypass surgeon repeat scan did not show any problems, but she persists to have significant pain. Pain seems to be worse whenever she gets ill. Here hemoglobin was 6.3, white count 25,000, sodium was 129 although she definitely appears to be volume depleted and keeping down on the liquids. Creatinine 1.95, BUN 38. Recent baseline is not available. Amylase and lipase slightly elevated. This may be nonspecific UA. PAST MEDICAL HISTORY: 1. Polycystic kidney disease. 2. Unsure of baseline. 3. Concern for chronic pain syndrome. 4. Appears to have some evidence of opiate and benzodiazepine use and maybe even dependence. 5. Question attention deficit hyperactivity disorder as she is on Adderall. HOME MEDICATIONS: 1. Adderall. 2. Ambien. FAMILY HISTORY: Polycystic kidney disease on paternal side. SOCIAL HISTORY: . Apparently does not smoke or abuse alcohol. PHYSICAL EXAMINATION: GENERAL: Lying in bed, appears somewhat emaciated, very ill-appearing. VITAL SIGNS: Temperature 97.6, blood pressure 94/73, pulse 96. HEENT: Oral mucosa is not dry however (drinking liquids). NECK: Neck veins are flat. CHEST: Clear. Bilateral breath sounds equal. ABDOMEN: Vague tenderness. No definite peritoneal signs. EXTREMITIES: No edema. SKIN: Dry. NEUROLOGIC: Affect is flat. No tremors are noted. LABORATORY DATA: Labs as reviewed above. ASSESSMENT: 1. Hyponatremia from volume depletion. 2. Acute kidney injury (there is chronic kidney disease from the polycystic kidney disease, however, I do not know her baseline GFR). -fatoumata presumed volume depletion, and/or atn from infection 3. Blood pressure medrano this may be her normal blood pressures, but definitely is on the low side. 4. Mild acidosis, possibly from decreased GFR. 5. Malnutrition and hypoalbuminemia. 6. Underlying urinary tract infection. Please see UA (it is hard to determine if the cyst themselves are infected, but that needs to be considered, as well) _. 7. There also appears to be hemorrhage within some of the cyst based on the CT scan. PLAN: 1. Continue IV fluids. Keep on normal saline and add Bicitra for the time being. 2. A.m. chemistries 3. avoid NSAID (she tells me she already knows that), defer pain control and general Medicine. There may be some concern for chronic pain and tolerance issues. 3. No emergent need for dialysis. 4. We will follow along. MD YASMEEN WeissK/MODL /[id number] MTDD
--- NOTE | 2019-12-31 13:29 | NUR ---
Nutrition Intervention Note RD Recommendation(s) for Physician: - As feasible, ADAT to goal of No concentrated sweets, 6 small meals per day - Recommend Glucerna Shakes TID when diet advanced - MVI per Nephrology for adequacy Pt meets criteria for moderate protein calorie malnutrition Plan of Care: RD following, monitoring for tolerance and adequacy. Diet and supplement recommendations. Nutrition reason for involvement: Nutrition Risk Trigger RD Assessment 12/30: 34 YOF admitted for dehydrated and ongoing hx of PKD. Pt seen today per MST screen on admit. 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 Pt with hx of gastric bypass and reports that she eats small portions at baseline. Pt reports UBW of 120-130 lbs, approximately 12% wt loss in 1 month- significant wt loss noted. Pt reports tolerating CLD. Pt receptive to Glucerna Shakes when diet advanced. All questions and concerns addressed at time of visit. Chart reviewed. Rec's provided. Will continue to monitor. Principal Problems/Diagnoses: dehydration, elevated lipase PMH: gastric bypass GI: WDL Skin: intact Labs: 12/30: Na 132, k 4.4, BUN 35, Cr 1.61, Gluc 83, Ca 7.8 Meds: zofran IVF: NS at 125 ml/hr Ht: 64 in Wt: 110 lb BMI: 18.9 kg/m2 IBW: 120 lb Malnutrition Evaluation (12/31/19) The patient meets criteria for MODERATE protein-calorie malnutrition. Energy intake: moderate <75% of estimated energy requirements for 1 month Weight loss: severe >5% in 1 month (Acute) Fat loss: Mild, dark circles around eyes Muscle loss: Moderate, clavicle- some protrusion Supporting Evidence: Fluid accumulation: none Functional Status: not assessed Nutrition Prescription (Diet Order): Clear liquids Estimated Nutritional Needs: 7756-4306 calories/day (25-30 kcal/kg CBW) 50-75 g protein/day (1-1.5 g pro/kg CBW) Diet Adequacy: Not meeting calorie needs, Not meeting protein needs Diet Tolerance: Diet Education Needs Assessment: Diet education not indicated, patient on temporary/transition diet. Nutrition Care Level: moderate Nutrition Diagnosis: Inadequate energy and protein intake related to current medical condition (PKD) as evidenced by poor intake, wt loss, and not meeting needs. Goal: Patient will meet 75-100% of estimated needs by follow up Progress: N/A Interventions: -Fluid, no concentrated sweets, 6 small meals modified diet, Commercial beverage, Recommended Modifications, Skill Development, Multivitamin/mineral supplement therapy Monitoring/Evaluation: -Total energy intake, Total protein intake, Prescription medication, Modified diet, Liquid supplement, Weight change Signed: Marlene Calero RD, LD, [facility]
--- NOTE | 2019-12-31 14:44 | Progress Note ---
DATE: SUBJECTIVE: The patient has improved with blood transfusion. Blood pressure has been stable. She is denying any complaints of chest pain. She told me that she uses Vicodin for back pain at home and Ambien at night to sleep. PHYSICAL EXAMINATION: VITAL SIGNS: Temperature 97.6, pulse of 96, and blood pressure is 136/92. CHEST: Clear to auscultation bilaterally. No wheezing. HEART: S1, S2 audible. ABDOMEN: Soft. EXTREMITIES: No pedal edema. NEUROLOGIC: Awake and alert. LABORATORY DATA: Creatinine is down to 1.6 and a white cell count is still up to 30,000, hemoglobin is 13.9 and platelets 355. Urine culture is growing gram-negative bacillus. ASSESSMENT/PLAN: Ms. Nunez is a 34-year-old female. She has a history of gastric bypass surgery. Appears to be anorexic, emaciated. Current problems: 1. Dizziness, presyncope secondary to anemia, which has improved. Hemoglobin and hematocrit are improved. 2. Urinary tract infection. I will continue the patient on IV Zosyn. 3. Leukocytosis. I am unsure of the reason for leukocytosis at this point, could be due to urinary tract infection. We will recheck labs in a.m. If still continues to be high, then may need Hematology evaluation could be outpatient. GI is on the case. Appreciate Nephrology recommendations. The patient's creatinine is improving. Continue current treatment. I will continue the patient on Tylenol, start Ambien q.4 hours for insomnia. MD MACK Vuong/ELEAZAR /[id number]
--- NOTE | 2019-12-31 18:45 | NUR ---
Dr Driver to bedside, to contact Dr Lacey regarding consult.
[2019-12-31] MEDS: ZOLPIDEM TARTRATE 5 MG TAB PO PRN (19:20)
--- NOTE | 2019-12-31 19:20 | NUR ---
Pt. request Lalita now. RN informs pt of pending MRI. Pt. states, she doesn't care, and will wake up when it is time. Medication given, see MAR.
--- NOTE | 2019-12-31 22:07 | Consultation ---
DATE OF CONSULTATION: 12/31/2019 ADDITIONAL REFERRING PHYSICIAN: Duy Driver MD HISTORY OF PRESENT ILLNESS: The patient is a 34-year-old female who presented to the emergency room with complaints of weakness. She says she was passing out. She complains of right upper quadrant abdominal pain. The patient says she has had this pain off and on for more than a year and she came to the emergency room and was found to be severely anemic with a hemoglobin of 6.3. Since then, she has been transfused and is currently hemodynamically stable. She still complains of right upper quadrant abdominal pain. She was evaluated with CT of the abdomen and pelvis which revealed no evidence of obstruction. She had previous gastric bypass. She has mildly dilated common bile duct. She is status post cholecystectomy. Other lab tests revealed mildly elevated bilirubin of 3.5. PAST MEDICAL HISTORY: Significant for previous gastric bypass and previous cholecystectomy. She denies any other medical problems except for polycystic kidney disease, which was demonstrated on the CT scan also. HOME MEDICATIONS: Adderall and Ambien. ALLERGIES: IMIPENEM. FAMILY HISTORY: Noncontributory. SOCIAL HISTORY: The patient does not smoke cigarettes or drink alcohol. REVIEW OF SYSTEMS: As stated above. She said she had fever up to 104. PHYSICAL EXAMINATION: GENERAL: The patient is awake and alert. VITAL SIGNS: At this time are normal. She is not tachycardic and her blood pressure is normal. HEENT: Sclerae nonicteric. NECK: No masses. LUNGS: Equal breath sounds are clear bilaterally. CARDIAC: Regular rate and rhythm with no murmur. ABDOMEN: Tender in the epigastrium. There is no distention. No mass. No organomegaly. EXTREMITIES: Have no edema. NEUROLOGIC: Grossly intact. LABORATORY TESTS: White blood cell count on admission was 25,000, repeat is 30,000. Hemoglobin on admission was 6.3, repeat is 13.9. Hematocrit 20, it was now 42.6. There is a left shift of differential. Chemistries, BUN and creatinine are mildly elevated at 35 and 1.6. Bilirubin and alkaline phosphatase are also elevated at 3.5 and 226. Lipase and amylase are also elevated. The bilirubin on admission was normal. ASSESSMENT: A 34-year-old female with severe anemia, also elevated bilirubin, amylase and lipase. This could represent a common bile duct stone with cholangitis and pancreatitis. At this time, there is no sign of acute surgical abdomen that require immediate surgical intervention. I agree with the plan for MRCP. Depending on results, she may require some intervention, possibly percutaneous cholangiogram with drainage or surgical intervention. Because of her previous gastric bypass, ERCP is not feasible. Thank you for asking me to see Ms. Nunez. MD VALENTINA Dean/ELEAZAR /[id number]
[2020-01-01] VITALS (12 sets, daily range): BP systolic 90–135; BP diastolic 55–95
--- NOTE | 2020-01-01 00:54 | NUR ---
Call received from MD Graham. updated to patient's status. Pt. refused MRI, despite being offered anti anxiety Meds. Pt. states, "I don't want to go anywhere near that machine". Pt. denies claustrophobia, reports she "hates the sound of the MRI machine. Addendum: 01/01/20 at 0502 by Kanika Root RN Late entry. Pt refuses ordered IVF. States it makes her miserable due to having her pee all of the time.
--- NOTE | 2020-01-01 01:37 | Consultation ---
DATE OF CONSULTATION: 12/31/2019 HISTORY OF PRESENT ILLNESS: This is a 34-year-old lady, who presented to the hospital because of feeling weak and also kind of passing out. The patient apparently complains of abdominal pain and some fever. She also noted that she is turning jaundice or yellow several days ago. Her workup so far revealed that her bilirubin was high, now it is 3.5 with AST of 35 and alkaline phosphatase is 226. Her white blood cell count is elevated of 30,000. She was anemic with hemoglobin of 6.3, she received 4 units of packed red blood cells and hemoglobin went up to 13.9. She had a CAT scan of the abdomen and pelvis on admission, which shows minimal circumferential bladder thickening. Also, there is dilatation of the common bile duct up to 8.4 mm at the yesy hepatis and also 8.9 mm at the pancreatic duct. She has had a cholecystectomy about 8-9 years ago. She has gastric bypass about 12 years ago. PAST MEDICAL HISTORY: As mentioned before. ALLERGIES: NONE. SOCIAL HISTORY: Denies any alcohol use. FAMILY HISTORY: Noncontributory. REVIEW OF SYSTEMS: Otherwise unremarkable. PHYSICAL EXAMINATION: GENERAL: The patient is awake, lying in bed, appears to be stable, in no acute distress at this point. VITAL SIGNS: Afebrile currently. HEAD, EYES, EARS, NOSE, AND THROAT: Normocephalic, atraumatic. Sclerae are anicteric. NECK: Supple. HEART: Regular. LUNGS: Clear. ABDOMEN: Soft. There is tenderness in the right upper quadrant area. There is no rebound or mass. EXTREMITIES: No clubbing. LABORATORY VALUES: WBC of 30.95 and bilirubin on admission of 0.8, AST of 39, ALT of 49, however, today it went up to 3.5 bilirubin and AST of 35. Amylase and lipase are little bit high with amylase of 193 and lipase of 264. A CAT scan was unremarkable with and without contrast. IMPRESSION: 1. The patient has a pancreatitis with elevation possibility of bile duct stones. The patient also has some leukocytosis. 2. Anemia, probably more often issues with malabsorption, gastric bypass. RECOMMENDATIONS: We will get it and start MRCP and depending on the results, the patient may need to have a PTC and/or possibly surgery for common bile duct exploration. The patient may have bile duct stones at this point. Continue antibiotic at this point, and I will follow labs and clinically. MD KAY Johnson/MADHAVL /[id number] cc: Collin Aiken MD
[2020-01-01] MEDS: PIPERACILLIN/TAZO 2.25 GM 50 ML IV SCH ×3 (03:55→14:49)
[2020-01-01] MEDS: SODIUM CHLORIDE 0.9% 1000ML 1,000 ML IV SCH (04:30)
[2020-01-01 05:20] LABS: ANION GAP 12.9 mmol/L (8-16); CALCIUM 7.7 mg/dL (8.4-10.2); CREATININE, SERUM 1.52 mg/dL (0.57-1.11); MAGNESIUM 1.8 MG/DL (1.3-2.1); PHOSPHORUS 3.5 MG/DL (2.3-4.7); POTASSIUM 3.9 mmol/L (3.5-5.1)
[2020-01-01 05:42] LABS: FERRITIN 1127.35 ng/mL (4.63-204.00)
[2020-01-01 07:44] LABS: BASOPHILS # (AUTO) 0.1 (0.0-0.1); BASOPHILS % 0.4 % (0.0-1.0); EOSINOPHILS # (AUTO) 0.2 (0.0-0.4); EOSINOPHILS % 0.5 % (0.0-6.0); HEMATOCRIT 38.8 % (34.2-44.1); HEMOGLOBIN 12.7 g/dL (12.0-16.0); LYMPHOCYTES # (AUTO) 1.1 (1.0-3.2); LYMPHOCYTES % 3.5 % (18.0-39.1); MEAN CORPUSCULAR HGB CONC 32.7 g/dL (31-35); MEAN CORPUSCULAR VOLUME 88.6 fL (81-99); MONOCYTES # (AUTO) 1.1 (0.2-0.8); MONOCYTES % 3.7 % (4.4-11.3); NEUTROPHILS % 89.1 % (38.7-80.0); PLATELET COUNT 485 x10e3/uL (140-360); RED BLOOD COUNT 4.38 x10e6/uL (3.6-5.1)
[2020-01-01 08:23] LABS: ALBUMIN 2.2 g/dL (3.5-5.0)
[2020-01-01] MEDS: ONDANSETRON HCL INJ 2MG/ML 2ML 2 MG/ML VIAL IV PRN ×2 (09:51→16:12)
[2020-01-01 09:58] LABS: BILIRUBIN,DIRECT 0.9 mg/dL (0.0-0.5)
[2020-01-01] MEDS ORDERED: LORAZEPAM INJ 2 MG/ML VIAL IV PRN (10:15)
--- NOTE | 2020-01-01 10:28 | NUR ---
Left message for Sussy Arredondo, Dr Smith's PA and spoke with Dr Smith re: new consult; Dr Hodge aware of consult.
--- NOTE | 2020-01-01 11:00 | NUR ---
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 Pt overwhelmed and "confused". Pt tearfully described relational crisis. Intervention: Provided calming presence and empathic listening. Provided prayer. Will follow as able. Outcome: Pt expressed appreciation for visit. Followed up w/ RN. EDIE Maclain [facility] Department O: [phone]
--- NOTE | 2020-01-01 11:09 | Progress Note ---
DATE: SUBJECTIVE: The patient has improved on IV Zosyn for possible cholangitis. White cell count is still 30,000. Renal failure is improving. Dr. Driver evaluated the patient and told me that the patient possibly has a stone in the bile duct and causing cholangitis. MRCP has been ordered, initially she declined. PHYSICAL EXAMINATION: VITAL SIGNS: Temperature 98.2, pulse of 93, and blood pressure 135/95. CHEST: Clear to auscultation bilaterally. No shortness of breath. No wheezing. ABDOMEN: Soft and nontender. EXTREMITIES: No pedal edema. NEUROLOGIC: She is awake and alert. LABORATORY DATA: Reviewed. Creatinine is 1.52. White cell count is 30,000. Urine culture is growing E. coli. ASSESSMENT/PLAN: Ms. Nunez is a 34-year-old female, possibility of cholangitis and stone in the duct. MRCP has been ordered. We will do MRCP with Ativan. The patient is claustrophobic. I will also add Flagyl IV and consult ID for further recommendation of leukocytosis. Also, we will consult Psychiatry. The patient is very tearful and reporting depression. MD MACK Vuong/ELEAZAR /[id number]
[2020-01-01] MEDS ORDERED: METRONIDAZOLE 500MG/NS 100ML 100 ML IV SCH (12:00)
[2020-01-01] MEDS ORDERED: EPOETIN ALFA-EPBX 10,000 UNIT/ML VIAL SC ONE (12:45)
--- NOTE | 2020-01-01 13:21 | Progress Note ---
DATE: 01/01/2020 SUBJECTIVE: Somewhat better. Still some pain. There is concern for cholangitis and choledocholithiasis. PHYSICAL EXAMINATION: VITAL SIGNS: She was afebrile. Temperature 98.2, pulse 93, blood pressure 135/95. GENERAL: Feels chronically ill, somewhat sad appearing. No swelling. CHEST: Clear. ABDOMEN: Soft. LABORATORY DATA: Reviewed. Hemoglobin up to 12.7. Sodium 133, stable. Creatinine 1.52, BUN 29, serum CO2 is 18, slowly improving. ASSESSMENT: Acute kidney injury on chronic kidney disease, stage unknown; underlying autosomal dominant polycystic kidney disease, mild hyponatremia presumed from the volume depletion, urinary tract infection, now concerned for cholangitis. Anemia has improved, satisfactory iron stores. PLAN: Continue conservative management. No emergent need for dialysis. Await MRCP results. Encourage p.o. fluid intake for now. MD YASMEEN WeissK/MODL /[id number]
--- NOTE | 2020-01-01 13:25 | Diagnostic Imaging Report ---
EXAM: MRI of the abdomen without contrast with MRCP INDICATION: Possible common bile duct stone. COMPARISON: Noncontrast CT 12/30/2019. Discussion: LOWER THORAX: Trace bilateral pleural effusions. HEPATOBILIARY: No focal hepatic lesions. There is mild intra and extra hepatic biliary duct dilation. Common bile duct measures up to 1 cm in diameter. There is normal tapering common bile duct at the level of the ampulla. No obstructing calculus or mass is identified on this exam. GALLBLADDER: Prior cholecystectomy. No wall thickening. SPLEEN: No splenomegaly. PANCREAS: No focal masses or ductal dilatation. ADRENALS: No adrenal nodules KIDNEYS/URETERS: Marked enlargement of bilateral kidneys which are near completely replaced by multiple cysts. Many of the cysts demonstrate increased T1 hyperintense signal consistent with hemorrhagic or pernicious fluid. GI TRACT: Postsurgical changes are noted from gastric bypass. No abnormal distention, wall thickening, or evidence of bowel obstruction. LYMPH NODES: No lymphadenopathy. VESSELS: Unremarkable. PERITONEUM / RETROPERITONEUM: No free air or fluid. BONES: Unremarkable. SOFT TISSUES: Unremarkable. IMPRESSION: Mild intra and extra hepatic biliary dilation without obstructing calculus or mass. Findings may represent reservoir effect from prior cholecystectomy. Correlate with liver function tests. Enlarged bilateral kidneys replaced by innumerable simple and complicated cysts consistent with polycystic kidney disease. Trace bilateral pleural effusions. Signed by: Jerson Nguyen MD on 01/01/2020 1:22 PM
--- NOTE | 2020-01-01 16:32 | NUR ---
This is a 34-year-old female with history of autosomal dominant polycystic kidney disease came with worsening appetite and feeling dizzy. She has seen Renal Service on and off, but has been about 4 to 5 years since she last saw Dr. Paredes. I do not have the actual chemistries from that time. There is a history of anemia, which predates her gastric bypass, according to her she came with a hemoglobin of 6.3. Decreased appetite, unable to put on weight. CT scan did show bladder wall thickening as well as marked polycystic kidney disease. There was no bowel obstruction per the report. Here she is able to keep clear liquids down. Blood pressure is on the low side, but I am not sure what her baseline is. Urine drug screen was of note positive for opiates and benzodiazepines. She does say she has a history of gastric bypass due to pain. It was revised, adhesions removed and since then has persistent pain. According to her after she saw the bypass surgeon repeat scan did not show any problems, but she persists to have significant pain. Pain seems to be worse whenever she gets ill. Here hemoglobin was 6.3, white count 25,000, sodium was 129 although she definitely appears to be volume depleted and keeping down on the liquids. Creatinine 1.95, BUN 38. Recent baseline is not available. Amylase and lipase slightly elevated. This may be nonspecific UA. PAST MEDICAL HISTORY: 1. Polycystic kidney disease. 2. Unsure of baseline. 3. Concern for chronic pain syndrome. 4. Appears to have some evidence of opiate and benzodiazepine use and maybe even dependence. 5. Question attention deficit hyperactivity disorder as she is on Adderall. sepsis on admission utI BACK PAIN CHECK MRI
--- NOTE | 2020-01-01 16:51 | NUR ---
INFECTIOUS DISEASE PROGRESS NOTE ARNULFO CAMARENA M.D. HISTORY OF PRESENT ILLNESS: Ms. Nunez is a 34-year-old female. She presented to the emergency room with the complaints of weakness. She reports that she has been generally feeling weak, has decreased appetite for 3-4 weeks, possibly cough as well. She stood up and she was feeling dizzy and almost collapsed to the floor, so she called EMS. She has a history of gastric bypass surgery in 2011 and since then, patient's appetite has gone down. She is malnourished and emaciated. In the emergency room, the patient's hemoglobin was 6.3, and creatinine was 1.95 with a lipase of 264. She underwent a CT of abdomen and pelvis in the emergency room, which showed no bowel dilatation or evidence of obstruction, circumferential bladder wall thickening, finding consistent with marked polycystic kidney disease. Mildly enlarged left para-aortic lymph nodes. Mild dilatation of common bile duct reflects post cholecystectomy status. REVIEW OF SYSTEMS: GENERAL: Denies any fever or chills. HEAD: Denies any head trauma. ENT: Denies any earache. CVS: Denies any chest pain. RESPIRATORY: Denies any shortness of breath. The rest of the review of systems are negative except as in HPI. PAST MEDICAL HISTORY: Gastric bypass surgery. PHYSICAL EXAMINATION: VITAL SIGNS: Temperature 98.1, pulse of 84, blood pressure 90/65. HEENT: Head is atraumatic and normocephalic. NECK: Supple. CHEST: Clear to auscultation bilaterally. Generally she appears to be very weak and pale. ABDOMEN: Soft. EXTREMITIES: No pedal edema. NEUROLOGIC: Awake and alert. LABORATORY DATA: reviewed RADIOLOGY: IMPRESSION: Mild intra and extra hepatic biliary dilation without obstructing calculus or mass. Findings may represent reservoir effect from prior cholecystectomy. Correlate with liver function tests. Enlarged bilateral kidneys replaced by innumerable simple and complicated cysts consistent with polycystic kidney disease. Trace bilateral pleural effusions. ASSESSMENT: 1. Dizziness, presyncope secondary to anemia. 2. Severe anemia, possibly blood loss versus nutritional deficiency secondary to gastric bypass surgery. 3. Urinary tract infection. 4. Polycystic kidneys per the CT abdomen reading. -pansens E Coli 5. Malnutrition and weight loss. 6. History of gastric bypass surgery. 7. Leukocytosis 8. Acute kidney injury 9. Chronic Back Pain PLAN: get MRI of the spine w/o contrast Zosyn descalated to Rocephin Monitor clinically Arpita Kingston MSN, FINANCIAL COMPLIANCE MANAGER, AGACNP-BC Arnulfo Camarena M.D
--- NOTE | 2020-01-01 19:01 | Consultation ---
DATE OF CONSULTATION: Psychiatric Initial Evaluation REASON FOR CONSULTATION: For treatment and evaluation of patient's depression and anxiety. HISTORY OF PRESENT ILLNESS: The patient is a 34-year-old female, who was admitted to [facility] in [facility] because of multiple medical problems. Psychiatric consultation is called to evaluate the patient's mood and anxiety during her inpatient stay. Upon evaluation today, the patient is found to be sitting on a bed and she is alert, awake, oriented to situation. She states she is feeling very depressed, hopeless, helpless because of her relationship, which is with her boyfriend. The relationship is not going well. She was almost tearful during this assessment. She sometimes feel hopeless and helpless. She is not able to sleep and eat very well. She denies any hallucinations and/or any suicidal ideations at this time. She denies any abnormal precipitations at this time. No delusion are elicited. Her thought process is goal directed. She denies any manic symptoms in the past. PAST PSYCHIATRIC HISTORY: The patient states that she has been treated for depression, anxiety, and PTSD. She has never attempted any suicide. She denies drinking alcohol and denies abusing any recreational drugs. FAMILY HISTORY: The patient's family history is positive for depression and anxiety. SOCIAL HISTORY: The patient lives with her fiance/boyfriend. CURRENT LABORATORIES: WBC 30.31, hemoglobin 12.7, hematocrit 38.8, and platelets 485. Sodium 133, potassium 3.9, chloride 106, BUN 29, creatinine 1.52. CURRENT MEDICATIONS: 1. Flagyl. 2. P.r.n. Ambien. MENTAL STATUS EXAMINATION: The patient is a young female, who is currently sitting on her bed. She is alert, awake, oriented to situation. She is calm and cooperative. Her mood is depressed and anxious with appropriate affect. She denies any suicidal or homicidal ideation at present. She denies any abnormal perceptions at present. No delusions are elicited. Her thought process is goal directed. Her insight and judgement are limited. DIAGNOSES: AXIS I: 1. Major depressive disorder, recurrent, moderate. 2. Post-traumatic stress disorder. PLAN OF CARE: 1. Add Remeron 15 mg p.o. q.6 at bedtime. 2. Add Ativan 0.5 mg p.o. q.6 p.r.n. for anxiety. 3. Supportive therapy during her inpatient stay. 4. Referral to outpatient psychiatry for continued care. Thank you very much for this consult. MD MADHU Carrasco/MODL /[id number]
--- NOTE | 2020-01-01 19:38 | NUR ---
received report from day nurse. patient is resting comfortably in the bed. bed is in the lowest position and call light is within reach. will continue to monitor patient.
[2020-01-01] MEDS ORDERED: SODIUM CHLORIDE 0.9% 250ML 250 ML ONE (20:23)
[2020-01-01] MEDS: CEFTRIAXONE SOD 1 GM/NS 50 ML 50 ML IV SCH (20:25)
[2020-01-01] MEDS: MIRTAZAPINE 15 MG TAB PO SCH (20:25)
[2020-01-01] MEDS: ZOLPIDEM TARTRATE 5 MG TAB PO PRN (20:30)
[2020-01-01] MEDS: LORAZEPAM 0.5 MG TAB PO PRN (20:30)
[2020-01-02] VITALS (9 sets, daily range): BP systolic 98–119; BP diastolic 66–86
[2020-01-02] MEDS ORDERED: LORAZEPAM INJ 2 MG/ML VIAL IV PRN (05:00)
[2020-01-02 06:05] LABS: BASOPHILS # (AUTO) 0.1 (0.0-0.1); BASOPHILS % 0.4 % (0.0-1.0); EOSINOPHILS % 0.1 % (0.0-6.0); HEMATOCRIT 35.6 % (34.2-44.1); HEMOGLOBIN 11.8 g/dL (12.0-16.0); LYMPHOCYTES # (AUTO) 1.2 (1.0-3.2); LYMPHOCYTES % 4.5 % (18.0-39.1); MEAN CORPUSCULAR HEMOGLOBIN 28.9 pg (28-32); MEAN CORPUSCULAR HGB CONC 33.1 g/dL (31-35); MONOCYTES # (AUTO) 1.2 (0.2-0.8); MONOCYTES % 4.4 % (4.4-11.3); NEUTROPHILS # (AUTO) 23.9 (2.1-6.9); NEUTROPHILS % 87.6 % (38.7-80.0); PLATELET COUNT 515 x10e3/uL (140-360); RED BLOOD COUNT 4.09 x10e6/uL (3.6-5.1); RED CELL DISTRIBUTION WIDTH 16.6 % (11.7-14.4)
[2020-01-02 06:24] LABS: ALBUMIN 2.3 g/dL (3.5-5.0); ALBUMIN/GLOBULIN RATIO 0.6 (0.8-2.0); ANION GAP 13.1 mmol/L (8-16); CALCIUM 7.6 mg/dL (8.4-10.2); CREATININE, SERUM 1.35 mg/dL (0.57-1.11); POTASSIUM 4.1 mmol/L (3.5-5.1)
--- NOTE | 2020-01-02 08:49 | NUR ---
ok to [facility]apan telimetry for MRI
[2020-01-02] MEDS: LORAZEPAM 0.5 MG TAB PO PRN ×2 (08:54→20:33)
--- NOTE | 2020-01-02 09:45 | NUR ---
Follow up visit. Pt states "I feel better" concerning her relationship. Orthotist Or Prosthetist reminded pt of availability of caregiver services home services. No need to follow at this time. EDIE ACEVEDO Orthotist Or Prosthetist Spiritual Care Department O: [phone]
--- NOTE | 2020-01-02 10:25 | Progress Note ---
DATE: 01/02/2020 SUBJECTIVE: Out of the intensive care unit. MRCP is once again confirming polycystic kidney disease. There was no obstructing calculus or mass in the bile duct and presumably this was post cholecystectomy changes. exam no edema no distress lung clear no cvat Serum CO2 remains low. Hemoglobin is up to 11.8 in holding. As noted, drug screen is positive for benzodiazepines and opiates. Urine culture showing E. coli. ASSESSMENT: 1. Acute kidney injury, likely from volume depletion, underlying autosomal dominant polycystic kidney disease. 2. Baseline GFR unknown, but she may be getting approaching to it. Today, creatinine is 1.35, estimated GFR is 45 mL/minute. 3. Ferritin is 1100. 4. Satisfactory electrolytes. 5. Metabolic acidosis, possibly from the chloride as well as chronic kidney disease. Anion gap is normal, which is not uncommon in early chronic kidney disease with acidosis. PLAN: 1. Add p.o. bicarbonate. Avoid dehydration (the idea being to avoid any stimuli for ADH). Keep up with fluid. 2. Monitor the low sodium. It is not clear if she has a superimposed SIADH at this point. 3. Antibiotic treatment with underlying infection. MD YASMEEN WeissK/ELEAZAR /[id number] MTDKyaw
[2020-01-02] MEDS: SODIUM BICARBONATE 650 MG TAB PO SCH ×2 (10:44→16:47)
[2020-01-02] MEDS: ONDANSETRON HCL INJ 2MG/ML 2ML 2 MG/ML VIAL IV PRN ×2 (14:07→19:08)
--- NOTE | 2020-01-02 15:47 | Diagnostic Imaging Report ---
History: Back pain Comparison studies: None Technique: Sagittal, axial coronal T2, sagittal T1 and IR, axial spin density oblique. Intravenous contrast: None Findings: Number of lumbar vertebral bodies: 5. Alignment: Straightening of the usual lower node curvature may be positional. Soft tissues: Markedly enlarged bilateral kidneys which contain multiple cysts. Some cysts are simple others are complex and hemorrhagic and cannot be further evaluated on this exam. Mildly enlarged left paraaortic lymph nodes are nonspecific but may be reactive as described on the 12/30/[address] Dorsal paraspinal muscles: Well-preserved, no atrophy. Lower thoracic cord: Normal in signal and morphology. The tip of the conus is at L1 Cauda equina: No masses. No arachnoiditis. Vertebrae: Chronic T12 superior endplate depression deformity with mild height loss. No acute compression fracture or infection. No focal neoplasm. Mild diffuse decreased T2 marrow signal changes may be technique-related or possibly reactive changes of chronic disease. Degenerative changes: L1-L2 through L3-L4: No abnormalities L4-L5: Mildly degenerated disc with symmetric disc bulge and small left foraminal annular fissure without significant canal or foraminal stenosis. L5-S1: No abnormalities IMPRESSION: 1. No acute lumbar spinal abnormalities. 2. Mildly degenerated L4-L5 disc with annular fissure. 3. Patent spinal canal and foramina. No disc herniation. 4. Polycystic kidneys with mildly enlarged nonspecific left para-aortic lymph nodes. Signed by: Dr. Clinton Acosta M.D. on 01/02/2020 3:44 PM
--- NOTE | 2020-01-02 16:43 | NUR ---
infectious disease per his note. Patient seen exam and chart reviewed events noted laboratory noted. Review of system and there is no new information the patient time she is still having some back pain on the left side. Her physical examination she is currently alert oriented vitals stable afebrile. HEENT normocephalic not impaired or icteric. Neck supple chest clear bilateral heart S1-S2 no S3-S4 or murmur abdomen soft pulse of present no hepatosplenomegaly extremities no edema skin no rash. impression sepsis on admission clinically better UTI E. coli slowly better Continue Rocephin 1 g daily Chronic kidney disease Polycystic kidney disease Recheck CBC recheck in panel continue with IV fluids and supportive care for renal
[2020-01-02] MEDS: ACETAMINOPHEN 325 MG TAB PO PRN (18:24)
[2020-01-02] MEDS: CEFTRIAXONE SOD 1 GM/NS 50 ML 50 ML IV SCH (20:33)
[2020-01-02] MEDS: ZOLPIDEM TARTRATE 5 MG TAB PO PRN (20:33)
[2020-01-02] MEDS: MIRTAZAPINE 15 MG TAB PO SCH (20:33)
--- NOTE | 2020-01-02 21:08 | Progress Note ---
DATE: SUBJECTIVE: The patient has improved out of ICU, breathing much better. No distress. Hemoglobin and hematocrit are stable. Renal failure has resolved. PHYSICAL EXAMINATION: VITAL SIGNS: Temperature 102.2, pulse of 106, and blood pressure 113/77. CHEST: Clear. ABDOMEN: Soft. GENERAL: Awake and alert. EXTREMITIES: No pedal edema. LABORATORY DATA: White count is 27,000, hemoglobin 11.8, and platelets 515. Chemistry; creatinine is down to 1.35. Metabolic acidosis is resolving. ASSESSMENT/PLAN: Ms. Nunez is a 34-year-old female with a history of gastric bypass surgery, came in because of hypotension and severe anemia. Blood transfusion was done. Still has leukocytosis and fever. Case discussed with Dr. Hodge likely due to urinary tract infection. The patient is on IV antibiotics. She has polycystic kidney disease and possibility of a cyst being infected. MRCP is normal. The patient's iron and ferritin are stable as well and vitamin B12 level is also more than 2000. MD MACK Vuong/MODL /[id number]
[2020-01-02] MEDS ORDERED: ZOLPIDEM TARTRATE 5 MG TAB PO ONE (21:15)
[2020-01-03] MEDS: ONDANSETRON HCL INJ 2MG/ML 2ML 2 MG/ML VIAL IV PRN ×2 (03:37→12:04)
[2020-01-03 05:32] VITALS: BP 99/68
[2020-01-03 06:39] LABS: CALCIUM 7.8 mg/dL (8.4-10.2); CREATININE, SERUM 1.19 mg/dL (0.57-1.11); MAGNESIUM 1.6 MG/DL (1.3-2.1); PHOSPHORUS 2.9 MG/DL (2.3-4.7)
[2020-01-03 06:51] VITALS: BP 99/68
--- NOTE | 2020-01-03 09:11 | NUR ---
infectious disease progress note Patient seen and examined chart reviewed ROS: + fatigue ALL 14 POINT ROS NEG UNLESS OTHERWISE NOTED LABORATORY DATA: reviewed RADIOLOGY DATA: reviewed PHYSICAL EXAMINATION: GENERAL: He is currently alert, oriented. VITAL SIGNS: Stable, currently afebrile. HEENT: Normocephalic. NECK: Supple. CHEST: Few crackles. HEART: S1 and S2. ABDOMEN: Soft. Bowel sounds present. EXTREMITIES: No edema. SKIN: No rash. IMPRESSION: This is a 42-year-old male, who has history of quadriplegic after a cervical spine injury, hypertension, schizophrenia, UTI, and pneumonia. He was admitted for suprapubic catheter placement. The patient is currently alert, comfortable. No complaints. Events noted. His urine is showing ESBL Klebsiella Cystitis MDRO -klebseilla oxytoca -proteus mirabilis ESBL suprapubic catheter HTN Chronic Pain Syndrome Quadriplegia Pressure ulcer
[2020-01-03] MEDS: SODIUM BICARBONATE 650 MG TAB PO SCH ×2 (09:24→17:01)
[2020-01-03 10:31] VITALS: BP 107/72
[2020-01-03 12:00] VITALS: BP 118/85
[2020-01-03 15:25] LABS: BASOPHILS # (AUTO) 0.1 (0.0-0.1); BASOPHILS % 0.3 % (0.0-1.0); EOSINOPHILS % 0.2 % (0.0-6.0); HEMATOCRIT 35.4 % (34.2-44.1); HEMOGLOBIN 11.5 g/dL (12.0-16.0); LYMPHOCYTES % 5.1 % (18.0-39.1); MEAN CORPUSCULAR HGB CONC 32.5 g/dL (31-35); MEAN CORPUSCULAR VOLUME 89.2 fL (81-99); MONOCYTES % 5.2 % (4.4-11.3); NEUTROPHILS # (AUTO) 17.3 (2.1-6.9); NEUTROPHILS % 86.7 % (38.7-80.0); PLATELET COUNT 531 x10e3/uL (140-360); RED BLOOD COUNT 3.97 x10e6/uL (3.6-5.1); RED CELL DISTRIBUTION WIDTH 16.6 % (11.7-14.4)
[2020-01-03 16:00] VITALS: BP 114/81
--- NOTE | 2020-01-03 19:31 | Progress Note ---
DATE: SUBJECTIVE: Ms. Nunez continued to have some abdominal pain. Overall, she is feeling better. PHYSICAL EXAMINATION: VITAL SIGNS: Stable, afebrile. HEENT: Normocephalic, does not appear icteric. NECK: Supple. CHEST: Clear bilateral. HEART: S1, S2. ABDOMEN: Soft. Bowel sounds present. EXTREMITIES: No edema. SKIN: No rash. IMPRESSION: Urinary tract infection and sepsis on admission. Last time, we had CBC, it was 27,000. Recheck CBC in the morning. Anemia acute on chronic. renal disease, chronic kidney disease. Recheck CBC. Recheck Chem panel. Discussed with GI and discussed with medical team. We will follow. MD DESMOND Wu/MODMary Beth /[id number]
[2020-01-03 20:03] VITALS: BP 96/63
[2020-01-03] MEDS: ZOLPIDEM TARTRATE 5 MG TAB PO PRN (20:13)
[2020-01-03] MEDS: MIRTAZAPINE 15 MG TAB PO SCH (20:13)
[2020-01-03] MEDS: LORAZEPAM 0.5 MG TAB PO PRN (20:13)
[2020-01-03] MEDS: CEFTRIAXONE SOD 1 GM/NS 50 ML 50 ML IV SCH (20:13)
[2020-01-03] MEDS: HYDROCODONE/APAP 10MG-325MG TAB PO PRN (21:30)
--- NOTE | 2020-01-03 22:06 | Progress Note ---
DATE: SUBJECTIVE: The patient is still having low-grade fever. Last fever spike was 102. She is complaining of mild abdominal discomfort. Her white cell count was 19,000 came down from 25,000. Renal failure has improved as well. PHYSICAL EXAMINATION: VITAL SIGNS: Temperature 99.9, pulse of 98, and blood pressure 114/81. CHEST: Clear to auscultation bilaterally. ABDOMEN: Soft. NEURO: Awake and alert. LABORATORY DATA: Reviewed. White count of 19,000. Urine cultures growing E coli. ASSESSMENT AND PLAN: Ms. Nunez is a 34-year-old female. She has a history of gastric bypass, severe anemia, came in with a hemoglobin of 6, status post blood transfusion. GI evaluated the patient. Endoscopies were done. No active bleeding source. The patient is doing well. Dr. Hodge is of the opinion that the patient has . Since the patient has polycystic kidney disease, one of the cyst is probably infected. Continue antibiotic. MD MACK Vuong/MADHAVL /[id number]
[2020-01-04] VITALS (7 sets, daily range): BP systolic 99–108; BP diastolic 65–81
[2020-01-04] MEDS: HYDROCODONE/APAP 10MG-325MG TAB PO PRN ×4 (05:25→23:19)
[2020-01-04] MEDS: SODIUM BICARBONATE 650 MG TAB PO SCH ×2 (08:17→17:13)
[2020-01-04 08:30] LABS: BASOPHILS # (AUTO) 0.1 (0.0-0.1); BASOPHILS % 0.3 % (0.0-1.0); EOSINOPHILS # (AUTO) 0.1 (0.0-0.4); EOSINOPHILS % 0.2 % (0.0-6.0); HEMATOCRIT 38.8 % (34.2-44.1); HEMOGLOBIN 12.2 g/dL (12.0-16.0); LYMPHOCYTES % 4.5 % (18.0-39.1); MEAN CORPUSCULAR HEMOGLOBIN 28.7 pg (28-32); MEAN CORPUSCULAR HGB CONC 31.4 g/dL (31-35); MEAN CORPUSCULAR VOLUME 91.3 fL (81-99); MONOCYTES # (AUTO) 0.8 (0.2-0.8); MONOCYTES % 3.9 % (4.4-11.3); NEUTROPHILS % 89.9 % (38.7-80.0); PLATELET COUNT 458 x10e3/uL (140-360); RED BLOOD COUNT 4.25 x10e6/uL (3.6-5.1); RED CELL DISTRIBUTION WIDTH 16.6 % (11.7-14.4)
[2020-01-04 08:47] LABS: ANION GAP 14.3 mmol/L (8-16); CALCIUM 8.3 mg/dL (8.4-10.2); CREATININE, SERUM 1.24 mg/dL (0.57-1.11); POTASSIUM 4.3 mmol/L (3.5-5.1)
[2020-01-04] MEDS: LORAZEPAM INJ 2 MG/ML VIAL IV PRN (15:37)
--- NOTE | 2020-01-04 16:42 | NUR ---
Ms. Nunez continued to have some abdominal pain. Overall, she is feeling better. doing better no new coplaints PHYSICAL EXAMINATION: VITAL SIGNS: Stable, afebrile. HEENT: Normocephalic, does not appear icteric. NECK: Supple. CHEST: Clear bilateral. HEART: S1, S2. ABDOMEN: Soft. Bowel sounds present. EXTREMITIES: No edema. SKIN: No rash. IMPRESSION: Urinary tract infection and sepsis on admission. Last time, we had CBC, it was 27,000. Recheck CBC in the morning. Anemia acute on chronic. CKD renal disease, chronic kidney disease. Recheck CBC. Recheck Chem panel. Discussed with GI and discussed with medical team.
--- NOTE | 2020-01-04 16:43 | NUR ---
Ms. Nunez continued to have some abdominal pain. Overall, she is feeling better. PHYSICAL EXAMINATION: VITAL SIGNS: Stable, afebrile. HEENT: Normocephalic, does not appear icteric. NECK: Supple. CHEST: Clear bilateral. HEART: S1, S2. ABDOMEN: Soft. Bowel sounds present. EXTREMITIES: No edema. SKIN: No rash. IMPRESSION: Urinary tract infection and sepsis on admission. Last time, we had CBC, it was 27,000. Recheck CBC in the morning. Anemia acute on chronic. renal disease, chronic kidney disease. Recheck CBC. Recheck Chem panel. Discussed with GI and discussed with medical team. DOING BETTER
[2020-01-04] MEDS: ONDANSETRON HCL INJ 2MG/ML 2ML 2 MG/ML VIAL IV PRN (17:14)
[2020-01-04] MEDS: LORAZEPAM 0.5 MG TAB PO PRN (20:45)
[2020-01-04] MEDS: CEFTRIAXONE SOD 1 GM/NS 50 ML 50 ML IV SCH (20:45)
[2020-01-04] MEDS: MIRTAZAPINE 15 MG TAB PO SCH (20:45)
[2020-01-04] MEDS: ZOLPIDEM TARTRATE 5 MG TAB PO PRN (20:45)
[2020-01-04] MEDS: ACETAMINOPHEN 325 MG TAB PO PRN (23:20)
[2020-01-05] VITALS (9 sets, daily range): BP systolic 92–121; BP diastolic 62–82
[2020-01-05] MEDS: HYDROCODONE/APAP 10MG-325MG TAB PO PRN ×3 (06:03→18:25)
[2020-01-05] MEDS: SODIUM BICARBONATE 650 MG TAB PO SCH ×2 (09:30→18:24)
--- NOTE | 2020-01-05 11:22 | NUR ---
INFECTIOUS DISEASE PROGRESS NOTE ARNULFO CAMARENA M.D. REVIEW OF SYSTEMS: GENERAL: Denies any fever or chills. HEAD: Denies any head trauma. ENT: Denies any earache. CVS: Denies any chest pain. RESPIRATORY: Denies any shortness of breath. The rest of the review of systems are negative except as in HPI. PAST MEDICAL HISTORY: Gastric bypass surgery. PHYSICAL EXAMINATION: VITAL SIGNS: Temperature 98.1, pulse of 84, blood pressure 90/65. HEENT: Head is atraumatic and normocephalic. NECK: Supple. CHEST: Clear to auscultation bilaterally. Generally she appears to be very weak and pale. ABDOMEN: Soft. EXTREMITIES: No pedal edema. NEUROLOGIC: Awake and alert. LABORATORY DATA: reviewed RADIOLOGY: reviewed IMPRESSION: 1. No acute lumbar spinal abnormalities. 2. Mildly degenerated L4-L5 disc with annular fissure. 3. Patent spinal canal and foramina. No disc herniation. 4. Polycystic kidneys with mildly enlarged nonspecific left para-aortic lymph nodes. ASSESSMENT: 1. Dizziness, presyncope secondary to anemia. 2. Severe anemia, possibly blood loss versus nutritional deficiency secondary to gastric bypass surgery. 3. Urinary tract infection. 4. Polycystic kidneys per the CT abdomen reading. -pansens E Coli 5. Malnutrition and weight loss. 6. History of gastric bypass surgery. 7. Leukocytosis 8. Acute kidney injury 9. Chronic Back Pain PLAN: Rocephin until the white count normalizes Can d/c with oral Keflex x14 days when okay with others See me in clinic in 2 weeks Arpita Kingston MSN, CRAS, AGACNP-BC Arnulfo Camarena M.D
[2020-01-05] MEDS: LORAZEPAM INJ 2 MG/ML VIAL IV PRN (11:35)
[2020-01-05] MEDS: LORAZEPAM 0.5 MG TAB PO PRN ×2 (11:35→21:43)
--- NOTE | 2020-01-05 13:05 | NUR ---
Pt on telephone and unavailable at this time. Will follow up as able. EDIE ACEVEDO Portal Developer Spiritual Care Department O: [phone]
--- NOTE | 2020-01-05 13:34 | Progress Note ---
DATE: 01/05/2020 SUBJECTIVE: Quite tearful. Still in lot of right upper area pain. OBJECTIVE: GENERAL: Lying in bed, no distress. VITAL SIGNS: p 82, blood pressure 104/71, temperature 100.4. LABORATORY DATA: White count is 21,000, hemoglobin 12.2, and platelets 458. Urine cultures showing E. coli, on IV antibiotics. Creatinine is down to 1.24, serum CO2 is 19, K is 4.3, and anion gap is 14. ASSESSMENT: 1. Polycystic kidney disease, presumably autosomal dominant. 2. Concern for cyst infection, which would explain the situation. 3. Severe anemia, status post GI evaluation and transfusion. 4. Blood pressures remain reasonable. PLAN: 1. Eventually, we will need GEOVANY inhibitor/ARB as well with determination of kidney volumes to see if she is a candidate for tolvaptan. Most likely, she will be, but the issue will become how to monitor her given the lack of resources, but we will deal with this later. 2. Avoid NSAIDs and other nephrotoxins. 3. We will follow along. MD YASMEEN WeissK/ELEAZAR /[id number] MTDD
--- NOTE | 2020-01-05 14:23 | NUR ---
Nutrition Intervention Note RD Recommendation(s) for Physician: - Continue Regular diet as tolerated - Continue Glucerna shakes TID - MVI per Nephrology for adequacy Pt meets criteria for moderate protein calorie malnutrition Plan of Care: RD following, monitoring for tolerance and adequacy. Diet and supplement recommendations. Snacks added. Nutrition reason for involvement: follow up RD Assessment 01/04: Follow up. Pt reports fluctuating diet tolerance, reports emesis earlier today after lunch. Pt reports drinking and tolerating Glucerna shakes TID. Obtained pt food preferences and snacks ordered to promote po intake. All questions and concerns addressed at time of visit. Will continue to monitor. 12/30: 34 YOF admitted for dehydrated and ongoing hx of PKD. Pt seen today per MST screen on admit. Pt reports poor appetite x 3-4 weeks HYDROMETER TESTER and decreased po intake. Pt with hx of gastric bypass and reports that she eats small portions at baseline. Pt reports UBW of 120-130 lbs, approximately 12% wt loss in 1 month- significant wt loss noted. Pt reports tolerating CLD. Pt receptive to Glucerna Shakes when diet advanced. All questions and concerns addressed at time of visit. Chart reviewed. Rec's provided. Will continue to monitor. Principal Problems/Diagnoses: dehydration, elevated lipase PMH: gastric bypass GI: last BM 01/03 Skin: intact Labs: 01/04: Na 132, K 4.3, BUN 14, Cr 1.24, Gluc 159, Ca 8.3 12/30: Na 132, k 4.4, BUN 35, Cr 1.61, Gluc 83, Ca 7.8 Meds: zofran, ativan, Na bicarb, norco, abx, remeron Ht: 64 in Wt: 110 lb BMI: 18.9 kg/m2 IBW: 120 lb Malnutrition Evaluation (12/31/19) The patient meets criteria for MODERATE protein-calorie malnutrition. Energy intake: moderate <75% of estimated energy requirements for 1 month Weight loss: severe >5% in 1 month (Acute) Fat loss: Mild, dark circles around eyes Muscle loss: Moderate, clavicle- some protrusion Supporting Evidence: Fluid accumulation: none Functional Status: not assessed Nutrition Prescription (Diet Order): Regular with Glucerna shakes TID Estimated Nutritional Needs: 2790-9705 calories/day (25-30 kcal/kg CBW) 50-75 g protein/day (1-1.5 g pro/kg CBW) Diet Adequacy: Not meeting calorie needs, Not meeting protein needs Diet Tolerance: tolerance varies Diet Education Needs Assessment: Diet education not indicated, patient on regular diet. Nutrition Care Level: moderate Nutrition Diagnosis: Inadequate energy and protein intake related to current medical condition (PKD) as evidenced by poor intake, wt loss, and not meeting needs. Goal: Patient will meet 75-100% of estimated needs by follow up Progress: progressing Interventions: -Regular diet, snacks BID, Commercial beverage, Recommended Modifications, Multivitamin/mineral supplement therapy Monitoring/Evaluation: -Total energy intake, Total protein intake, Prescription medication, Modified diet, Liquid supplement, Weight change Signed: Marlene Calero RD, BILL, CNSC
[2020-01-05] MEDS: ONDANSETRON HCL INJ 2MG/ML 2ML 2 MG/ML VIAL IV PRN ×2 (16:38→16:40)
--- NOTE | 2020-01-05 18:49 | Progress Note ---
DATE: 01/05/2020 Psychiatric Progress Note SUBJECTIVE: The patient evaluated and events noted. The patient is in the room. She is alert, awake, and oriented to situation. She continued to report poor sleep, anxiety, and pain. She is requesting for scheduled Ativan. She denies any suicidal or homicidal ideation. She denies any hallucination. She denies any problem with medication. LABORATORY DATA: Reviewed. ASSESSMENT: 1. Major depressive disorder, recurrent, moderate. 2. Post-traumatic stress disorder. PLAN: 1. To increase Remeron. 2. Add Neurontin. 3. Continue with Ambien p.r.n. 4. Add Ativan schedule 0.5 p.o. b.i.d. Dictated by Sussy Arredondo PA-C Hanna Smith MD QTV/MODL /[id number]
[2020-01-05] MEDS: MIRTAZAPINE 15 MG TAB PO SCH (20:00)
[2020-01-05] MEDS: CEFTRIAXONE SOD 1 GM/NS 50 ML 50 ML IV SCH (20:00)
[2020-01-05] MEDS: ACETAMINOPHEN 325 MG TAB PO PRN (20:00)
[2020-01-05] MEDS: ZOLPIDEM TARTRATE 5 MG TAB PO PRN (22:45)
[2020-01-06] VITALS (8 sets, daily range): BP systolic 95–118; BP diastolic 61–72
[2020-01-06] MEDS: HYDROCODONE/APAP 10MG-325MG TAB PO PRN ×4 (02:19→21:19)
[2020-01-06 05:19] LABS: BASOPHILS # (AUTO) 0.1 (0.0-0.1); BASOPHILS % 0.3 % (0.0-1.0); EOSINOPHILS # (AUTO) 0.1 (0.0-0.4); EOSINOPHILS % 0.2 % (0.0-6.0); HEMATOCRIT 34.2 % (34.2-44.1); HEMOGLOBIN 10.8 g/dL (12.0-16.0); LYMPHOCYTES # (AUTO) 0.9 (1.0-3.2); LYMPHOCYTES % 4.2 % (18.0-39.1); MEAN CORPUSCULAR HEMOGLOBIN 29.8 pg (28-32); MEAN CORPUSCULAR HGB CONC 31.6 g/dL (31-35); MEAN CORPUSCULAR VOLUME 94.5 fL (81-99); MONOCYTES # (AUTO) 0.8 (0.2-0.8); MONOCYTES % 3.7 % (4.4-11.3); NEUTROPHILS # (AUTO) 19.4 (2.1-6.9); NEUTROPHILS % 90.6 % (38.7-80.0); PLATELET COUNT 472 x10e3/uL (140-360); RED BLOOD COUNT 3.62 x10e6/uL (3.6-5.1); RED CELL DISTRIBUTION WIDTH 16.4 % (11.7-14.4)
[2020-01-06 05:38] LABS: ANION GAP 12.1 mmol/L (8-16); CALCIUM 7.7 mg/dL (8.4-10.2); CREATININE, SERUM 1.15 mg/dL (0.57-1.11); POTASSIUM 5.1 mmol/L (3.5-5.1)
[2020-01-06] MEDS: SODIUM BICARBONATE 650 MG TAB PO SCH ×2 (09:32→17:00)
[2020-01-06] MEDS: GABAPENTIN 100 MG CAP PO SCH ×2 (09:32→16:55)
[2020-01-06] MEDS: LORAZEPAM 0.5 MG TAB PO SCH ×2 (09:32→16:55)
--- NOTE | 2020-01-06 10:57 | Progress Note ---
DATE: 01/06/2020 SUBJECTIVE: Renal function is better, still with low-grade fevers, on IV antibiotics. Concern for cyst infection. OBJECTIVE: VITAL SIGNS: Pulse 94, blood pressure 108/72, and temperature is 98. lung clear no edema unable to elicit cvat LABORATORY DATA: Serum CO2 is better at 27. K is 5.1. ASSESSMENT: 1. Polycystic kidney disease, adult type. 2. Urinary tract infection with sepsis, concern for possible cyst infection. 3. Acidosis, improved. 4. Volume status better. PLAN: Continue supportive management. Leave on the bicarbonate for now. We can probably start cutting back on the dose. MD JL Weiss/ELEAZAR /[id number] MTDD
--- NOTE | 2020-01-06 13:04 | Progress Note ---
DATE: SUBJECTIVE: She states she is feeling better. She is still running a low fever 100. PHYSICAL EXAMINATION: GENERAL: She is currently alert and oriented. VITAL SIGNS: Stable, currently afebrile. HEENT: She is not icteric. NECK: Supple. CHEST: Crackles. HEART: S1 and S2. ABDOMEN: Soft. IMPRESSION: Urinary tract infection, polycystic kidney disease, still high white count. We will repeat ultrasound of the abdomen. Continue IV antibiotic. We will follow. MD DESMOND Wu/ELEAZAR /[id number]
--- NOTE | 2020-01-06 15:45 | Diagnostic Imaging Report ---
EXAM: Renal Ultrasound INDICATION: ^r/o abcess ^[id number] ^[id number] COMPARISON: CT abdomen and pelvis of 12/30/2019 TECHNIQUE: Transverse and longitudinal images of the kidneys and bladder were obtained. FINDINGS: Right Kidney: Length: 16.5 cm Appearance: Normal echogenicity. Collecting system: No hydronephrosis Stones: None Cyst/Mass: Numerous cystic lesions of various internal echogenicity, some with complex internal contents most compatible with blood products of varying age. Left Kidney: Length: 15.8 cm Appearance: Normal echogenicity. Collecting system: No hydronephrosis Stones: None Cyst/Mass: Numerous cystic lesions of various internal echogenicity, some with complex internal contents most compatible with blood products of varying age. Bladder: No mass or calculus. Left ureteral jet visualized. Right ureteral jet not visualized. Prevoid volume estimate of 156 cc. IMPRESSION: Bilaterally enlarged polycystic kidneys with innumerable bilateral cysts, some of which contain variably echogenic material compatible with hemorrhagic cysts. Signed by: Melisa Campbell MD on 01/06/2020 3:41 PM
[2020-01-06] MEDS: ONDANSETRON HCL INJ 2MG/ML 2ML 2 MG/ML VIAL IV PRN (18:23)
--- NOTE | 2020-01-06 20:09 | NUR ---
pt resting in bed comfortably no signs of distress no complaints at this time
[2020-01-06] MEDS: LORAZEPAM 0.5 MG TAB PO PRN (20:10)
[2020-01-06] MEDS: MIRTAZAPINE 15 MG TAB PO SCH (20:46)
[2020-01-06] MEDS: CEFTRIAXONE SOD 1 GM/NS 50 ML 50 ML IV SCH (20:46)
[2020-01-06] MEDS: ZOLPIDEM TARTRATE 5 MG TAB PO PRN (20:51)
[2020-01-06] MEDS: MAGNESIUM/ALUMINUM/SIMETHICONE 30 ML UDC PO PRN (21:19)
[2020-01-07] VITALS (8 sets, daily range): BP systolic 100–130; BP diastolic 60–79
[2020-01-07] MEDS: HYDROCODONE/APAP 10MG-325MG TAB PO PRN ×3 (05:33→18:32)
--- NOTE | 2020-01-07 07:00 | NUR ---
RECEIVED BEDSIDE REPORT FROM OFF GOING NIGHT NURSE. RESPIRATION EVEN AND NONLABORED. PATIENT IN STABLE CONDITION, NO S/S OF DISTRESS NOTED. TELEMETRY APPLIED. IV SITE ASYMPTOMATIC AND PATENT, TRANSPARENT DRESSING C/D/I. BED IN LOWEST POSITION AND LOCKED, SIDE RAILS X 2, NONSKID SOCKS APPLIED.
[2020-01-07] MEDS: LORAZEPAM 0.5 MG TAB PO SCH ×2 (09:26→16:28)
[2020-01-07] MEDS: GABAPENTIN 100 MG CAP PO SCH ×2 (09:26→16:28)
[2020-01-07] MEDS: SODIUM BICARBONATE 650 MG TAB PO SCH ×2 (09:26→16:28)
[2020-01-07] MEDS ORDERED: LACTULOSE SYRUP 20 GM/30 ML UDC PO STA (10:34)
[2020-01-07 10:53] LABS: BASOPHILS # (AUTO) 0.1 (0.0-0.1); BASOPHILS % 0.2 % (0.0-1.0); EOSINOPHILS % 0.1 % (0.0-6.0); HEMATOCRIT 34.7 % (34.2-44.1); HEMOGLOBIN 10.7 g/dL (12.0-16.0); LYMPHOCYTES # (AUTO) 0.8 (1.0-3.2); LYMPHOCYTES % 3.9 % (18.0-39.1); MEAN CORPUSCULAR HEMOGLOBIN 28.9 pg (28-32); MEAN CORPUSCULAR HGB CONC 30.8 g/dL (31-35); MEAN CORPUSCULAR VOLUME 93.8 fL (81-99); MONOCYTES # (AUTO) 0.7 (0.2-0.8); MONOCYTES % 3.5 % (4.4-11.3); NEUTROPHILS # (AUTO) 19.2 (2.1-6.9); NEUTROPHILS % 91.7 % (38.7-80.0); PLATELET COUNT 473 x10e3/uL (140-360); RED CELL DISTRIBUTION WIDTH 16.3 % (11.7-14.4)
[2020-01-07] MEDS ORDERED: LACTULOSE SYRUP 20 GM/30 ML UDC PO ONE ×3 (11:30→12:00)
[2020-01-07] MEDS ORDERED: SOD POLYSTYRENE SULFONATE SUSP 15 GM/60 ML BTL PO ONE ×2 (11:30→11:45)
[2020-01-07 12:08] LABS: ANISOCYTOSIS SLIGHT; LYMPHOCYTES % (MANUAL) 4 % (19-48); MONOCYTES % (MANUAL) 1 % (3.4-9.0); NEUTROPHILS % (MANUAL) 93 % (40-74); PLATELET ESTIMATE SLIGHTLY INCREASED; RBC MORPHOLOGY COMMENT NORMAL
[2020-01-07 12:09] LABS: PLATELET MORPHOLOGY COMMENT FEW EDTA CLUMPING
--- NOTE | 2020-01-07 13:52 | NUR ---
infections disease The patient is feeling better Still with some pain Her review of system otherwise unremarkable Her physical examination currently alert oriented does not seem to be in acute distress but stable afebrile HEENT normocephalic neck supple chest clear heart S1-S2 abdomen soft muscle present extremities no edema UTI Polycystic kidney disease Bleeding inside some of the cyst Discussed with the patient her only options is to continue with antibiotic could be discharged home with oral Keflex 500 mg by mouth 3 times a day for 6 weeks to recheck in 6 weeks follow-up with CBC If that failed surgical option need to be entertained
[2020-01-07] MEDS ORDERED: ONDANSETRON HCL 4 MG ORAL DISINTEGRATING TAB PO PRN (15:15)
--- NOTE | 2020-01-07 19:15 | NUR ---
COMPLETED BEDSIDE REPORT AND ROUNDING WITH ON COMING NIGHT NURSE. RESPIRATION EVEN AND NONLABORED. PATIENT IN STABLE CONDITION, NO S/S OF DISTRESS NOTED. TELEMETRY APPLIED. IV SITE ASYMPTOMATIC AND PATENT, TRANSPARENT DRESSING C/D/I. BED IN LOWEST POSITION AND LOCKED, SIDE RAILS X 2, NONSKID SOCKS APPLIED. CALL LIGHT WITHIN REACH.
[2020-01-07] MEDS: CEFTRIAXONE SOD 1 GM/NS 50 ML 50 ML IV SCH (21:20)
[2020-01-07] MEDS: MIRTAZAPINE 15 MG TAB PO SCH (21:20)
[2020-01-07] MEDS: ZOLPIDEM TARTRATE 5 MG TAB PO PRN (21:20)
[2020-01-07] MEDS: LORAZEPAM 0.5 MG TAB PO PRN (21:20)
[2020-01-08] VITALS (8 sets, daily range): BP systolic 99–115; BP diastolic 63–79
[2020-01-08] MEDS: HYDROCODONE/APAP 10MG-325MG TAB PO PRN ×4 (02:03→20:29)
[2020-01-08] MEDS: LORAZEPAM 0.5 MG TAB PO PRN (02:03)
--- NOTE | 2020-01-08 02:04 | NUR ---
PATIENT REQUESTING ATIVAN AND PRN PAIN MEDICATION, NURSE ON BREAK, FOUND IN DINING ROOM, INQUIRED ABOUT IF OKAY TO GIVE ATIVAN AND NORCO, HE STATED "ITS OKAY TO GIVE" PRN PAIN MEDICATION AND ATIVAN GIVEN PER PT REQUEST BOARD UPDATED WITH NEXT SCHEDULE PAIN MEDICATION
[2020-01-08 05:58] LABS: BASOPHILS # (AUTO) 0.1 (0.0-0.1); BASOPHILS % 0.4 % (0.0-1.0); EOSINOPHILS % 0.1 % (0.0-6.0); HEMATOCRIT 33.2 % (34.2-44.1); HEMOGLOBIN 10.1 g/dL (12.0-16.0); LYMPHOCYTES # (AUTO) 1.2 (1.0-3.2); LYMPHOCYTES % 5.9 % (18.0-39.1); MEAN CORPUSCULAR HEMOGLOBIN 28.3 pg (28-32); MEAN CORPUSCULAR HGB CONC 30.4 g/dL (31-35); MONOCYTES % 5.2 % (4.4-11.3); NEUTROPHILS # (AUTO) 17.2 (2.1-6.9); NEUTROPHILS % 87.7 % (38.7-80.0); PLATELET COUNT 495 x10e3/uL (140-360); RED BLOOD COUNT 3.57 x10e6/uL (3.6-5.1)
[2020-01-08 06:00] LABS: ALBUMIN 2.2 g/dL (3.5-5.0); ALBUMIN/GLOBULIN RATIO 0.6 (0.8-2.0); ANION GAP 14.1 mmol/L (8-16); CALCIUM 7.8 mg/dL (8.4-10.2); CREATININE, SERUM 1.06 mg/dL (0.57-1.11); POTASSIUM 4.1 mmol/L (3.5-5.1)
--- NOTE | 2020-01-08 07:00 | NUR ---
RECEIVED BEDSIDE REPORT FROM OFF GOING NIGHT NURSE. RESPIRATION EVEN AND NONLABORED. PATIENT IN STABLE CONDITION, NO S/S OF DISTRESS NOTED. TELEMETRY APPLIED. IV SITE ASYMPTOMATIC AND PATENT, TRANSPARENT DRESSING C/D/I. BED IN LOWEST POSITION AND LOCKED, SIDE RAILS X 2, NONSKID SOCKS APPLIED. CALL LIGHT WITHIN REACH.
[2020-01-08] MEDS: SODIUM BICARBONATE 650 MG TAB PO SCH ×2 (08:35→16:05)
[2020-01-08] MEDS: GABAPENTIN 100 MG CAP PO SCH ×2 (08:35→16:05)
[2020-01-08] MEDS: LORAZEPAM 0.5 MG TAB PO SCH ×2 (08:35→16:05)
[2020-01-08] MEDS: DEXTROSE 5%/0.45% SOD CHL 1,000 ML IV SCH ×2 (13:43→22:30)
[2020-01-08] MEDS: CIPROFLOXACIN 400 MG/D5W 200ML 200 ML IV SCH ×2 (13:44→22:57)
[2020-01-08] MEDS: MAGNESIUM/ALUMINUM/SIMETHICONE 30 ML UDC PO PRN (13:44)
--- NOTE | 2020-01-08 14:05 | NUR ---
CENTRAL LINE CLEANED AND DRESSING CHANGED.
--- NOTE | 2020-01-08 18:12 | Progress Note ---
DATE: SUBJECTIVE: The patient is seen and evaluated. Currently, no complaints. She is going for a shower. Review of systems, no nausea, vomiting, fever, chills, chest pain, shortness of breath, headache, rash, or dysuria. OBJECTIVE: VITAL SIGNS: Temperature 98.5, pulse 100, respiration 20, and blood pressure 106/70. GENERAL: Alert and oriented, in no acute distress. CV: S1, S2. CHEST: Equal expansion. No acute distress. EXTREMITIES: No edema. MEDICATIONS: Reviewed. From ID point of view, the patient is on ciprofloxacin IV. LABORATORY STUDIES: White count of 19.6, hemoglobin 10.1, and platelet 495. Sodium 138, potassium 4.1, creatinine is 1.06. SEROLOGY: Coronavirus not detected on 12/30/2019. MICROBIOLOGY: Blood culture negative on 12/30/2019. Urine culture E. coli pansensitive on 12/30/2019. Blood culture rechecked on 01/07/2020, pending. RADIOLOGY: Renal ultrasound 01/06/2020, showed bilateral enlarged polycystic kidneys with innumerable bilateral cysts, some of which contain very oblique echogenic material compatible with hemorrhagic cysts. ASSESSMENT AND PLAN: 1. Urinary tract infection. 2. Fever last night with a maximum temperature of 101.9. 3. Polycystic kidney disease. 4. Bleeding somewhat persists as evident on ultrasound of kidneys. Please see progress note from Dr. Hodge on 01/07/2020, as far as the patient's options for antibiotic treatment, currently on Cipro. Recommended Keflex 500 mg t.i.d. for 6 weeks and recheck in 6 weeks and follow up with the labs. If that fails, the patient may need surgical intervention. Follow up with the blood culture clinically, in no acute distress. Guarded prognosis. Dictated by Reno Marlow PA-C (Al) Darius Hodge MD /MODL /[id number]
--- NOTE | 2020-01-08 19:08 | NUR ---
COMPLETED BEDSIDE REPORT AND ROUNDING WITH ON COMING NIGHT NURSE. RESPIRATION EVEN AND NONLABORED. PATIENT IN STABLE CONDITION, NO S/S OF DISTRESS NOTED. TELEMETRY APPLIED. IV FLUIDS INFUSING, SITE ASYMPTOMATIC AND PATENT, TRANSPARENT DRESSING C/D/I. BED IN LOWEST POSITION AND LOCKED, SIDE RAILS X 2, NONSKID SOCKS APPLIED. CALL LIGHT WITHIN REACH.
[2020-01-08] MEDS: MIRTAZAPINE 15 MG TAB PO SCH (20:29)
[2020-01-08] MEDS: ZOLPIDEM TARTRATE 5 MG TAB PO PRN (20:41)
[2020-01-09] VITALS (7 sets, daily range): BP systolic 94–112; BP diastolic 65–78
[2020-01-09] MEDS: HYDROCODONE/APAP 10MG-325MG TAB PO PRN ×5 (01:43→20:09)
[2020-01-09] MEDS: DEXTROSE 5%/0.45% SOD CHL 1,000 ML IV SCH ×3 (05:56→17:03)
[2020-01-09] MEDS: GABAPENTIN 100 MG CAP PO SCH ×2 (09:00→17:02)
[2020-01-09] MEDS: LORAZEPAM 0.5 MG TAB PO SCH ×2 (09:00→17:02)
[2020-01-09] MEDS: SODIUM BICARBONATE 650 MG TAB PO SCH ×2 (09:00→17:02)
[2020-01-09] MEDS: CIPROFLOXACIN 400 MG/D5W 200ML 200 ML IV SCH ×2 (09:00→20:08)
[2020-01-09] MEDS ORDERED: ONDANSETRON HCL 4 MG ORAL DISINTEGRATING TAB PO PRN (10:15)
--- NOTE | 2020-01-09 16:13 | NUR ---
Nutrition Intervention Note RD Recommendation(s) for Physician: - Continue Regular diet as tolerated - Continue Glucerna shakes TID - Recommend multivitamin as appropriate Pt meets criteria for moderate protein calorie malnutrition Plan of Care: RD following, monitoring for tolerance and adequacy. Diet and supplement recommendations. Nutrition reason for involvement: follow up RD Assessment 01/08: Follow up. Pt reports eating about 50% of her meals and is still experiencing N/V. Pt mentioned she is drinking Glucerna shakes. Questions were answered. Will continue to monitor. 01/04: Follow up. Pt reports fluctuating diet tolerance, reports emesis earlier today after lunch. Pt reports drinking and tolerating Glucerna shakes TID. Obtained pt food preferences and snacks ordered to promote po intake. All questions and concerns addressed at time of visit. Will continue to monitor. 12/30: 34 YOF admitted for dehydrated and ongoing hx of PKD. Pt seen today per [facility] screen on admit. 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 Pt with hx of gastric bypass and reports that she eats small portions at baseline. Pt reports UBW of 120-130 lbs, approximately 12% wt loss in 1 month- significant wt loss noted. Pt reports tolerating CLD. Pt receptive to Glucerna Shakes when diet advanced. All questions and concerns addressed at time of visit. Chart reviewed. Rec's provided. Will continue to monitor. Principal Problems/Diagnoses: dehydration, elevated lipase PMH: gastric bypass GI: last BM 01/08 Skin: intact Labs: 01/08: Na 138, K 4.1, BUN 14, Cr 1.06, Glu 91, Ca 7.8 01/04: Na 132, K 4.3, BUN 14, Cr 1.24, Gluc 159, Ca 8.3 12/30: Na 132, k 4.4, BUN 35, Cr 1.61, Gluc 83, Ca 7.8 Meds: antibiotic, zofran Ht: 64 in Wt: 111 lbs (01/03) 110 lb (12/30) BMI: 18.9 kg/m2 - using wt of 110 lbs IBW: 120 lb Malnutrition Evaluation (12/31/19) The patient meets criteria for MODERATE protein-calorie malnutrition. Energy intake: moderate <75% of estimated energy requirements for 1 month Weight loss: severe >5% in 1 month (Acute) Fat loss: Mild, dark circles around eyes Muscle loss: Moderate, clavicle- some protrusion Supporting Evidence: Fluid accumulation: none Functional Status: not assessed Nutrition Prescription (Diet Order): Regular diet Estimated Nutritional Needs: 7435-9297 calories/day (25-30 kcal/kg CBW) 50-75 g protein/day (1-1.5 g pro/kg CBW) Diet Adequacy: Not meeting calorie needs, Not meeting protein needs Diet Tolerance: pt reports N/V Diet Education Needs Assessment: Diet education not indicated, patient on regular diet. Nutrition Care Level: moderate Nutrition Diagnosis: Inadequate energy and protein intake related to current medical condition (PKD) as evidenced by poor intake, wt loss, and not meeting needs. Goal: Patient will meet 75-100% of estimated needs by follow up Progress: progressing Interventions: -Regular diet, Commercial beverage, Multivitamin/mineral supplement therapy Monitoring/Evaluation: -Total energy intake, Total protein intake, Liquid supplement, Weight change Signed: Poornima Augustin RD, BILL
--- NOTE | 2020-01-09 19:05 | NUR ---
BEDSIDE SHIFT REPORT RECEIVED. PATIENT IS RESTING IN BED, AAOX3. RESP EVEN AND UNLABORED. NO ACUTE DISTRESS NOTED. EDUCATED PT ABOUT FALL PRECAUTIONS. PT VERBALIZED UNDERSTANDING. BED IS LOW AND LOCKED. SIDE RAILS X2. CALL LIGHT WITH IN EASY REACH. BED ALARM IS ON. ALL SAFETY MEASURES IN PLACE. PT DENIES NEEDS AT THIS TIME.
--- NOTE | 2020-01-09 19:56 | Progress Note ---
DATE: SUBJECTIVE: The patient is seen and evaluated. Available labs and notes reviewed. Discussed with Dr. Hodge in details. REVIEW OF SYSTEMS: The patient is still with the pain, but is controlled appetite. The patient states that is picking up. No complaints of diarrhea or any intolerance of the antibiotics. No fever, chills, chest pain, shortness of breath, and no rash. PHYSICAL EXAMINATION: VITAL SIGNS: Temperature 98.6. Fever seems to be improved and resolved. Pulse 101, respirations 17, and blood pressure 111/75. GENERAL: Awake and alert, in no acute distress. CV: S1 and S2. CHEST: Equal expansion. Clear to auscultation. No acute distress. HEENT: Moist. No pallor. No JVD. EXTREMITIES: No acute finding. Some discomfort on the flanks. MEDICATIONS: Reviewed. From Infectious Disease point of view, the patient is on Cipro IV. LABORATORY STUDIES: No new CBC or BMP available at this point. MICROBIOLOGY: No new microbiology studies available. Blood culture from 01/07/2020, still negative. RADIOLOGY STUDIES: No new radiology studies available. ASSESSMENT AND PLAN: 1. Urinary tract infection. 2. Fever-resolved. 3. Polycystic kidney disease. 4. Current with Cipro, the patient needs 6 weeks of antibiotics and follow with Dr. Hodge. Be at this point, please refer to Dr. Hodge's note on 01/07/2020. The patient is clinically awake, alert, and no acute distress. Pain seems to be controlled. No complaints. Dictated by Reno Marlow PA-C (Al) Darius Hodge MD /MODL /[id number]
[2020-01-09] MEDS: MIRTAZAPINE 15 MG TAB PO SCH (20:08)
[2020-01-09] MEDS: ACETAMINOPHEN 325 MG TAB PO PRN (20:09)
[2020-01-09] MEDS: ZOLPIDEM TARTRATE 5 MG TAB PO PRN (20:54)
[2020-01-10] VITALS (9 sets, daily range): BP systolic 87–117; BP diastolic 64–75
[2020-01-10] MEDS: HYDROCODONE/APAP 10MG-325MG TAB PO PRN ×4 (02:10→19:57)
[2020-01-10] MEDS: DEXTROSE 5%/0.45% SOD CHL 1,000 ML IV SCH ×2 (04:00→14:30)
[2020-01-10 07:07] LABS: BASOPHILS # (AUTO) 0.1 (0.0-0.1); BASOPHILS % 0.3 % (0.0-1.0); EOSINOPHILS # (AUTO) 0.1 (0.0-0.4); EOSINOPHILS % 0.3 % (0.0-6.0); HEMATOCRIT 35.6 % (34.2-44.1); HEMOGLOBIN 10.8 g/dL (12.0-16.0); LYMPHOCYTES # (AUTO) 1.1 (1.0-3.2); LYMPHOCYTES % 7.4 % (18.0-39.1); MEAN CORPUSCULAR HEMOGLOBIN 30.1 pg (28-32); MEAN CORPUSCULAR HGB CONC 30.3 g/dL (31-35); MEAN CORPUSCULAR VOLUME 99.2 fL (81-99); MONOCYTES % 6.8 % (4.4-11.3); NEUTROPHILS # (AUTO) 12.2 (2.1-6.9); NEUTROPHILS % 84.6 % (38.7-80.0); PLATELET COUNT 493 x10e3/uL (140-360); RED BLOOD COUNT 3.59 x10e6/uL (3.6-5.1); RED CELL DISTRIBUTION WIDTH 15.9 % (11.7-14.4)
[2020-01-10 07:34] LABS: ALBUMIN 2.7 g/dL (3.5-5.0); ALBUMIN/GLOBULIN RATIO 0.6 (0.8-2.0); ANION GAP 15.3 mmol/L (8-16); CALCIUM 8.5 mg/dL (8.4-10.2); CREATININE, SERUM 1.09 mg/dL (0.57-1.11); POTASSIUM 4.3 mmol/L (3.5-5.1)
[2020-01-10] MEDS: CIPROFLOXACIN 400 MG/D5W 200ML 200 ML IV SCH ×2 (09:55→19:57)
[2020-01-10] MEDS: SODIUM BICARBONATE 650 MG TAB PO SCH ×2 (09:55→17:16)
[2020-01-10] MEDS: LORAZEPAM 0.5 MG TAB PO SCH ×2 (09:55→16:22)
[2020-01-10] MEDS: GABAPENTIN 100 MG CAP PO SCH ×2 (09:55→16:22)
--- NOTE | 2020-01-10 13:04 | Progress Note ---
DATE: 01/10/2020 SUBJECTIVE: Doing better since addition of IV ciprofloxacin by Dr. Brown. No discomfort. Blood pressure has been improved overnight. She had a fever of 102 last night, but since then has settled down. OBJECTIVE: VITAL SIGNS: Temperature 97.9, pulse 103, blood pressure 107/72. GENERAL: No distress. EXTREMITIES: No edema. NEURO: Alert and appropriate. LABORATORY DATA: White count is down to 14,000, hemoglobin 10.8, platelets are 493. Serum CO2 is now 28. K 4.3. Sodium 137, creatinine 1.09. ASSESSMENT: 1. Acute kidney injury, improved, presumed tubular necrosis plus volume depletion. 2. Underlying cyst infection is suspected. 3. Acidosis is resolved. PLAN: 1. Start cutting back p.o. bicarbonate. 2. Interval labs every 1-2 days. 3. We will follow along. MD YASMEEN WeissK/MADHAVL /[id number]
--- NOTE | 2020-01-10 16:40 | Progress Note ---
DATE: SUBJECTIVE: The patient is seen and evaluated. Available labs and notes reviewed. Discussed with Dr. Hodge. REVIEW OF SYSTEMS: She spikes fever occasionally. She had a T-max of 102 last night. No nausea, no vomiting, no fever, no chills. No chest pain. No shortness of breath. No headache. No rash. Pain is controlled with pain medication. PHYSICAL EXAMINATION: VITAL SIGNS: Blood pressure 108/69, temperature 97.8, pulse 97, respiration 20. GENERAL: Awake and alert. No acute distress. CV: S1, S2. CHEST: Equal expansion. Clear to auscultation. No acute distress. ABDOMEN: Soft, nontender. No distention. HEENT: Moist. No pallor. No JVD. MEDICATIONS: Medication list reviewed. The patient remains on ciprofloxacin IV piggyback. LABORATORY STUDIES: White count improved from 19.6 to 14.49, hemoglobin 10.8, platelet 493. Sodium 137, potassium 4.3 creatinine 1.09. No new toxicology. No new microbiology. Previous microbiology 01/07/2020, blood culture negative so far. No new serology available. RADIOLOGY STUDIES: No new radiology studies available. ASSESSMENT AND PLAN: 1. Urinary tract infection. 2. Polycystic kidney disease. 3. Fever concerned due to polycystic process. 4. Pain controlled with medication per others. 5. Debility. 6. Neuropathy. 7. Current with the antibiotics as mentioned, monitor the patient. Follow up with the cultures. Clinically, no acute distress. Alert, oriented, no shortness of breath. Continue to monitor patient clinically and follow up with the labs. Discussed with Dr. Hodge in details. Dictated by Reno Marlow PA-C (Al) Darius Hodge MD /MODL /[id number]
--- NOTE | 2020-01-10 19:08 | NUR ---
report given to oncoming nurse, walking rounds complete.
[2020-01-10] MEDS: MIRTAZAPINE 15 MG TAB PO SCH (19:57)
[2020-01-10] MEDS: ZOLPIDEM TARTRATE 5 MG TAB PO PRN (21:47)
[2020-01-11] VITALS (8 sets, daily range): BP systolic 102–111; BP diastolic 66–77
[2020-01-11] MEDS: DEXTROSE 5%/0.45% SOD CHL 1,000 ML IV SCH ×3 (00:30→20:30)
[2020-01-11] MEDS: HYDROCODONE/APAP 10MG-325MG TAB PO PRN ×4 (03:25→23:00)
[2020-01-11] MEDS: GABAPENTIN 100 MG CAP PO SCH ×2 (09:06→17:04)
[2020-01-11] MEDS: LORAZEPAM 0.5 MG TAB PO SCH ×2 (09:06→16:02)
[2020-01-11] MEDS: SODIUM BICARBONATE 650 MG TAB PO SCH (09:06)
[2020-01-11] MEDS ORDERED: ZOLPIDEM TARTRATE 10 MG TAB PO PRN (09:30)
[2020-01-11] MEDS: CIPROFLOXACIN 400 MG/D5W 200ML 200 ML IV SCH (09:39)
--- NOTE | 2020-01-11 11:52 | NUR ---
INFECTIOUS DISEASE PROGRESS NOTE DR. ARNULFO CAMARENA SUBJECTIVE: The patient is seen and evaluated. Available labs and notes reviewed. REVIEW OF SYSTEMS: She spikes fever occasionally. She had a T-max of 100 last night. No nausea, no vomiting, no fever, no chills. No chest pain. No shortness of breath. No headache. No rash. Pain is controlled with pain medication. PHYSICAL EXAMINATION: VITAL SIGNS: Blood pressure 108/69, temperature 97.8, pulse 97, respiration 20. GENERAL: Awake and alert. No acute distress. CV: S1, S2. CHEST: Equal expansion. Clear to auscultation. No acute distress. ABDOMEN: Soft, nontender. No distention. HEENT: Moist. No pallor. No JVD. MEDICATIONS: Medication list reviewed. The patient remains on ciprofloxacin IV piggyback. LABORATORY STUDIES: per chart Previous microbiology 01/07/2020, blood culture negative so far. No new serology available. RADIOLOGY STUDIES: No new radiology studies available. ASSESSMENT AND PLAN: 1. Urinary tract infection. 2. Polycystic kidney disease. 3. Fever concerned due to polycystic process. 4. Pain controlled with medication per others. 5. Debility. 6. Neuropathy. Leukocytosis and Fever are improved Will change to oral antibiotics Can d/c home with oral Cipro x14 days when WBC normalizes and afebrile for 24 hrs See me in clinic in 2 weeks Will need hipprex 1gm po BID for life upon discharge Arpita Kingston MSN, DIE CUTTER, AGACNP- Arnulfo Camarena M.D
[2020-01-11] MEDS: CIPROFLOXACIN 500 MG TAB PO SCH (17:04)
--- NOTE | 2020-01-11 18:49 | Progress Note ---
DATE: SUBJECTIVE: The patient has improved, more awake, more alert. No distress. Leukocytosis is resolving. PHYSICAL EXAMINATION: VITAL SIGNS: Temperature 98.1, pulse of 95, blood pressure 107/74, respiratory rate of 18, and T-max of 102. CHEST: Clear to auscultation bilaterally. ABDOMEN: Soft. NEUROLOGIC: Awake and alert. LABORATORY DATA: White count of 14,000, hemoglobin 10.8, and platelets 493. Chemistries within normal limits. Blood cultures have been negative so far. ASSESSMENT/PLAN: Ms. Nunez is a 34-year-old female, presented to the emergency room with fever, anorexia, and anemia. The patient's hemoglobin and hematocrit have been stable. Has a possibly infected cyst of one of the polycystic kidney cyst. Continue the patient on antibiotics per ID recommendation. Discontinue the telemetry. Continue other treatment. MD MACK Vuong/ELEAZAR /[id number]
--- NOTE | 2020-01-11 19:05 | NUR ---
Bedside rounds completed with morning nurse. Pt alert and oriented to name, lying in bed HOB 60 degrees. Denied pain or discomfort at this time. Call light within reach. Bed low and locked. Denies any further needs at this time.
--- NOTE | 2020-01-11 19:38 | NUR ---
REPORT GIVEN TO ONCOMING NURSE, WALKING ROUNDS COMPLETE.
[2020-01-11] MEDS: MIRTAZAPINE 15 MG TAB PO SCH (21:00)
[2020-01-12] VITALS (8 sets, daily range): BP systolic 98–110; BP diastolic 66–79
[2020-01-12] MEDS: HYDROCODONE/APAP 10MG-325MG TAB PO PRN ×5 (05:45→23:55)
[2020-01-12 05:58] LABS: ANION GAP 10.9 mmol/L (8-16); CALCIUM 8.3 mg/dL (8.4-10.2); CREATININE, SERUM 1.12 mg/dL (0.57-1.11); POTASSIUM 4.9 mmol/L (3.5-5.1)
[2020-01-12] MEDS: DEXTROSE 5%/0.45% SOD CHL 1,000 ML IV SCH ×3 (06:30→22:53)
[2020-01-12] MEDS: LORAZEPAM 0.5 MG TAB PO SCH ×2 (08:27→16:54)
[2020-01-12] MEDS: SODIUM BICARBONATE 650 MG TAB PO SCH (08:28)
[2020-01-12] MEDS: GABAPENTIN 100 MG CAP PO SCH (08:28)
[2020-01-12] MEDS: CIPROFLOXACIN 500 MG TAB PO SCH ×2 (08:28→16:54)
[2020-01-12] MEDS ORDERED: TEMAZEPAM 15 MG CAP PO PRN (14:15)
--- NOTE | 2020-01-12 16:04 | Progress Note ---
DATE: 01/12/2020 Psychiatric Progress Note SUBJECTIVE: The patient evaluated and events noted. The patient is sitting in the room. She is alert, awake, and oriented to situation. She reports feeling still very anxious and not able to sleep. She denies any suicidal ideation. Denies any hallucination. Denies any side effects from medication. ASSESSMENT: 1. Major depressive disorder, recurrent, moderate. 2. Post-traumatic stress disorder. PLAN: 1. Continue with Remeron 30 mg p.o. at bedtime. 2. Increase Neurontin to 300 mg p.o. 3 times a day from 200 mg p.o. b.i.d. 3. DC Ambien as needed. 4. Add temazepam 15 mg p.o. at bedtime p.r.n. 5. Continue Ativan 0.5 mg p.o. b.i.d. for mood. 6. Supportive therapy. Dictated by Sussy Arredondo PA-C Hanna Smith MD QTV/MODL /[id number]
[2020-01-12] MEDS: GABAPENTIN 300 MG CAP PO SCH ×2 (16:55→20:42)
--- NOTE | 2020-01-12 17:02 | NUR ---
INFECTIOUS DISEASE PROGRESS NOTE DR. ARNULFO CAMARENA SUBJECTIVE: The patient is seen and evaluated. Available labs and notes reviewed. REVIEW OF SYSTEMS: improved, no complaints ALL 14 POINT ROS NEG UNLESS OTHERWISE NOTED PHYSICAL EXAMINATION: VITAL SIGNS: Blood pressure 108/69, temperature 97.8, pulse 97, respiration 20. GENERAL: Awake and alert. No acute distress. CV: S1, S2. CHEST: Equal expansion. Clear to auscultation. No acute distress. ABDOMEN: Soft, nontender. No distention. HEENT: Moist. No pallor. No JVD. MEDICATIONS: Medication list reviewed. The patient remains on ciprofloxacin IV piggyback. LABORATORY STUDIES: per chart Previous microbiology 01/07/2020, blood culture negative so far. No new serology available. RADIOLOGY STUDIES: No new radiology studies available. ASSESSMENT AND PLAN: 1. Urinary tract infection. 2. Polycystic kidney disease. 3. Fever concerned due to polycystic process. 4. Pain controlled with medication per others. 5. Debility. 6. Neuropathy. CBC not done, spoke with nurse to do STAT -if WBC is normal, okay to discharge with oral Cipro x14 days See me in clinic in 2 weeks Will need hipprex 1gm po BID for life upon discharge Arpita Kingston MSN, TOBACCO GROWER, AGACNP-BC Arnulfo Camarena M.D
--- NOTE | 2020-01-12 17:45 | NUR ---
Dr. Hodge's BUSINESS ANALYST [employer] Ms. Kingston stated if WBC tonight is normal it's okay for the patient to discharge from their standpoint.
[2020-01-12 19:05] LABS: BASOPHILS # (AUTO) 0.1 (0.0-0.1); BASOPHILS % 0.4 % (0.0-1.0); EOSINOPHILS # (AUTO) 0.1 (0.0-0.4); EOSINOPHILS % 0.6 % (0.0-6.0); HEMATOCRIT 33.5 % (34.2-44.1); LYMPHOCYTES # (AUTO) 0.9 (1.0-3.2); LYMPHOCYTES % 8.2 % (18.0-39.1); MEAN CORPUSCULAR HEMOGLOBIN 29.1 pg (28-32); MEAN CORPUSCULAR HGB CONC 29.9 g/dL (31-35); MEAN CORPUSCULAR VOLUME 97.4 fL (81-99); MONOCYTES # (AUTO) 0.8 (0.2-0.8); MONOCYTES % 6.8 % (4.4-11.3); NEUTROPHILS # (AUTO) 9.3 (2.1-6.9); NEUTROPHILS % 83.6 % (38.7-80.0); PLATELET COUNT 473 x10e3/uL (140-360); RED BLOOD COUNT 3.44 x10e6/uL (3.6-5.1); RED CELL DISTRIBUTION WIDTH 15.8 % (11.7-14.4)
--- NOTE | 2020-01-12 20:40 | NUR ---
PATIENT RESTING IN BED IN STABLE CONDITION, NO SIGNS OF DISTRESS NOTED. PATIENT VOICES PAIN AT A LEVEL OF 7, WAS PREVIOUSLY MEDICATED ORDERED. PATIENT STILL ADMITTED DUE TO ELEVATED WBC PER PHYSICIAN'S ORDERS. BED IS IN LOWEST POSITION, BOTH SIDE RAILS ARE UP, CALL LIGHT IS WITHIN EASY REACH, WILL CONTINUE TO MONITOR.
[2020-01-12] MEDS: MIRTAZAPINE 15 MG TAB PO SCH (20:42)
--- NOTE | 2020-01-12 22:35 | Progress Note ---
DATE: SUBJECTIVE: The patient has improved. No fever since last night. Highest fever was 100.6. PHYSICAL EXAMINATION: VITAL SIGNS: T-max of 100.6, pulse of 97, blood pressure 102/70, respiratory rate of 18, and O2 saturation 99%. CHEST: Clear to auscultation bilaterally. No wheezing. HEART: S1 and S2 audible. ABDOMEN: Soft. NEUROLOGIC: Awake and alert. LABORATORY DATA: White count is down to 11,000, hemoglobin 10.0, and platelets 473. Chemistry reviewed. Creatinine 1.12. ASSESSMENT/PLAN: Ms. Nunez is a 34-year-old female. She is admitted because of possible renal cyst infection. Continue the patient on IV antibiotics. The patient will be discharged once cleared by ID. Overall, the patient has improved. MD MACK Vuong/ELEAZAR /[id number]
[2020-01-13] VITALS: BP 121/74
[2020-01-13] MEDS: ACETAMINOPHEN 325 MG TAB PO PRN (02:30)
[2020-01-13 04:00] VITALS: BP 109/67
--- NOTE | 2020-01-13 07:09 | NUR ---
ASSUMED CARE. AAOX3. ACYANOTIC. RESTING IN BED WITH HOB ELEVATED. NO DISTRESS NOTED. CALL LIGHT IN REACH. SIDE RAILS UP X2. BED LOW AND LOCKED.
[2020-01-13] MEDS: HYDROCODONE/APAP 10MG-325MG TAB PO PRN (07:29)
--- NOTE | 2020-01-13 07:32 | NUR ---
PATIENT CURRENTLY REFUSING IV FLUIDS
[2020-01-13 08:04] VITALS: BP 115/76
[2020-01-13] MEDS: CIPROFLOXACIN 500 MG TAB PO SCH (08:44)
[2020-01-13] MEDS: GABAPENTIN 300 MG CAP PO SCH (08:45)
[2020-01-13] MEDS: LORAZEPAM 0.5 MG TAB PO SCH (08:45)
[2020-01-13] MEDS: SODIUM BICARBONATE 650 MG TAB PO SCH (08:45)
[2020-01-13 08:59] VITALS: BP 115/76
[2020-01-13] MEDS ORDERED: DULOXETINE HCL 30 MG DELAYED RELEASE PO SCH (09:00)
[2020-01-13] MEDS ORDERED: CIPRO500 MG PO ×2 (09:13→10:09)
[2020-01-13] MEDS ORDERED: REMERON30 MG PO ×2 (09:14→10:08)
[2020-01-13] MEDS ORDERED: HIPREX1 GM PO ×2 (09:15→10:10)
--- NOTE | 2020-01-13 18:01 | Discharge Summary ---
The patient of Dr. Aiken, Dr. Morejon, and Dr. Hodge. HOSPITAL COURSE: The patient was admitted with back pain, found to have polycystic kidney disease with infected cysts, E. coli. Initially treated with Rocephin without much success. This was changed to Cipro for better penetration. The patient improved. She is also found to be depressed. She was placed on Remeron and also Neurontin during her hospital course. She is discharged much improved. Recommendation to follow at [facility] and consideration of followup at the Nephrology Clinic. She will be given prescriptions for ciprofloxacin, Hiprex, methenamine, and Remeron. Consideration of other medications will be deferred to the Nephrology Service. White count on admission was 25, rising to 31,000 and falling to 11,000 on date of discharge. Renal function at discharge, creatinine was 1.12. This is an autosomal dominant polycystic kidney disease, requires outpatient followup. She is discharged. I have spoken to manager social responsibility with regard to [facility]. MD NISHI Cooper/MODL /[id number]
== END 2020-01-13 11:16 | disposition home or self-care (01) | DRG 871 ==
LOC: ER 18:25 → ERHOLD 20:57 → ICU 23:56 → MED/SURG2 01-01 18:38
PROVIDERS: ADMIT Internal Medicine; ATTEND Internal Medicine
PROC: 30233N1 Transfusion of Nonautologous Red Blood Cells into Peripheral Vein, Percutaneous Approach (ICD-10-PCS; principal; 2019-12-30)
DX: A41.9 Sepsis, unspecified organism (principal); K85.90 Acute pancreatitis without necrosis or infection, unspecified; R57.1 Hypovolemic shock; N39.0 Urinary tract infection, site not specified; E46 Unspecified protein-calorie malnutrition; N17.9 Acute kidney failure, unspecified; E87.1 Hypo-osmolality and hyponatremia; E87.2 Acidosis; K80.30 Calculus of bile duct with cholangitis, unspecified, without obstruction; Z68.1 Body mass index [BMI] 19.9 or less, adult; F33.1 Major depressive disorder, recurrent, moderate; Q61.2 Polycystic kidney, adult type; K91.2 Postsurgical malabsorption, not elsewhere classified; Z98.84 Bariatric surgery status; B96.20 Unspecified Escherichia coli [E. coli] as the cause of diseases classified elsewhere; E88.09 Other disorders of plasma-protein metabolism, not elsewhere classified; D51.1 Vitamin B12 deficiency anemia due to selective vitamin B12 malabsorption with proteinuria; Z11.59 Encounter for screening for other viral diseases; G89.4 Chronic pain syndrome; F90.9 Attention-deficit hyperactivity disorder, unspecified type; F43.10 Post-traumatic stress disorder, unspecified; E11.40 Type 2 diabetes mellitus with diabetic neuropathy, unspecified; D53.9 Nutritional anemia, unspecified; R59.1 Generalized enlarged lymph nodes; Z79.4 Long term (current) use of insulin
CPT/HCPCS: 36415; 71045; 72148; 74176; 74181; 76770; 80048; 80053; 80076; 80307; 81001; 82150; 82550; 82553; 82607; 82728; 83540; 83605; 83690; 83735; 84100; 84466; 84484; 84550; 84702; 85025; 86850; 86900; 86920; 87040; 87086; 87186; 93005; 99251; 99285; J0696; J2060; J2405; J2543; J3411; J7030; J7050; P9016; Q0162; U0002

== ENCOUNTER 2020-02-13 02:21 | Emergency (ER) | payer SELFPAY ==
[~2020-02-13] VITALS: Ht 162.6 cm; Wt 50.3 kg
[~2020-02-13 02:21] MED LIST: ADDERALL 10 MG10 MG; AMBIEN10 MG PO; CIPRO500 MG PO; HIPREX1 GM PO; REMERON30 MG PO
[2020-02-13] MEDS ORDERED: MULTIVITAMINS- 12 INJECTION 10 ML, FOLIC ACID MDV 5 MG, THIAMINE HCL INJ 500 MG in SODI... IV ONE (02:30)
[2020-02-13 02:35] LABS: BASOPHILS % 0.3 % (0.0-1.0); EOSINOPHILS # (AUTO) 0.1 (0.0-0.4); EOSINOPHILS % 1.8 % (0.0-6.0); HEMOGLOBIN 10.7 g/dL (12.0-16.0); LYMPHOCYTES # (AUTO) 1.1 (1.0-3.2); LYMPHOCYTES % 14.7 % (18.0-39.1); MEAN CORPUSCULAR HEMOGLOBIN 29.2 pg (28-32); MEAN CORPUSCULAR HGB CONC 31.5 g/dL (31-35); MEAN CORPUSCULAR VOLUME 92.9 fL (81-99); MONOCYTES # (AUTO) 0.4 (0.2-0.8); MONOCYTES % 5.5 % (4.4-11.3); NEUTROPHILS % 77.4 % (38.7-80.0); PLATELET COUNT 193 x10e3/uL (140-360); RED BLOOD COUNT 3.66 x10e6/uL (3.6-5.1); RED CELL DISTRIBUTION WIDTH 16.6 % (11.7-14.4)
[2020-02-13 02:51] LABS: AMYLASE 67 U/L (25-125); LIPASE 29 U/L (8-78)
[2020-02-13 02:53] LABS: ALANINE AMINOTRANSFERASE 11 IU/L (0-55); ALBUMIN 3.3 g/dL (3.5-5.0); ALBUMIN/GLOBULIN RATIO 0.8 (0.8-2.0); ALKALINE PHOSPHATASE 74 IU/L (40-150); ANION GAP 13.5 mmol/L (8-16); BLOOD UREA NITROGEN 24 mg/dL (7-26); BUN/CREATININE RATIO 15 (6-25); CALCIUM 9.3 mg/dL (8.4-10.2); CARBON DIOXIDE 29 mmol/L (22-29); CHLORIDE 103 mmol/L (98-107); CREATINE KINASE 116 IU/L (29-168); CREATININE, SERUM 1.56 mg/dL (0.57-1.11); EST GLOMERULAR FILTRATION RATE 38 ML/MIN (60-); GLUCOSE 131 mg/dL (74-118); POTASSIUM 3.5 mmol/L (3.5-5.1); SODIUM 142 mmol/L (136-145)
--- NOTE | 2020-02-13 03:11 | Emergency Department Note ---
History of Present Illnes History of Present Illness Chief Complaint: Neurological History of Present Illness This is a 34 year old female PRESENTS TO THE ER VIA EMS FROM HOME C/ UNWITNESSED SYNCOPAL EPISODE; PT DENIES HEADACHE OR TAKING BLOOD THINNERS; PT CRYING ON ARRIVAL; HX OF ANXIETY; PT DENIE ETOH OR SUBSTANCE ABUSE BUT THEN STATES SHE HER STEP-MOM GAVE HER X3 CLONIPINE; PT KEEPS FALLING ASLEEP DURING ASSESSMENT; . 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, Clinical Assoc/EMS Arrival Mode: [place] Onset (how long ago): unknown Location: NONE Quality: POSSIBLE SYNCOPE, PT FOUND UNRESPONSIVE BY FAMILY Radiation: Reports non-radiation Severity: moderate Onset quality: unable to specify Duration (how long): day(s) (TODAY) Timing of current episode: unable to specify Progression: unable to specify Chronicity: new Context: Reports recent illness (PER PT RECENTLY HAD PANCREATITIS) Relieving factors: none Exacerbating factors: none Associated symptoms: Reports denies other symptoms Treatments prior to arrival: none (ALLA LE MD) 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 (WILIAN MILIAN MD) Past Medical/Family History Physician Review I have reviewed the patient's past medical and family history. Any updates have been documented here. (ALLA LE MD) Past Medical History Recent Fever: No Clinical Suspicion of Infectio: No New/Unexplained Change in Ment: No Past Medical History: Anemia, Anxiety, Chronic Back Pain Other Medical History: CHRONIC ABD PAIN Gastric Bybass, stanislav Past Surgical History: Bariatric Surgery Other Surgery: GASTRIC BYPASS 2011 (ALLA LE MD) Social History Smoking Cessation: Never Smoker Alcohol Use: None Any Illegal Drug Use: No (ALLA LE MD) Family History Family history of heart diseas: No (ALLA LE MD) Review of Systems Review of Systems Constitutional: Reports no symptoms EENTM: Reports no symptoms Cardiovascular: Reports no symptoms Respiratory: Reports no symptoms Gastrointestinal: Reports no symptoms Genitourinary: Reports no symptoms Musculoskeletal: Reports no symptoms Integumentary: Reports no symptoms Neurological: Reports as per HPI Psychological: Reports no symptoms Endocrine: Reports no symptoms Hematological/Lymphatic: Reports no symptoms Review of other systems: All other systems negative (ALLA LE MD) Physical Exam Related Data Allergies: Coded Allergies: imipenem (Verified Allergy, Intermediate, anemia, 12/30/19) Triage Vital Signs Vital Signs Date Time Temp Pulse Resp B/P (MAP) Pulse Ox O2 Delivery O2 Flow Rate FiO2 02/13/20 02:21 97.9 69 12 111/80 100 Room Air Vital signs reviewed: Yes (ALLA LE MD) Physical Exam CONSTITUTIONAL Constitutional: Present other (THIN AND MALNOURISHED APPEARING) HENT HENT: Present normocephalic, Present atraumatic, Present oropharynx clear/moist, Present nose normal HENT L/R: Present left ext ear normal, Present right ext ear normal EYES Eyes: Reports PERRL, Reports conjunctivae normal NECK Neck: Present ROM normal PULMONARY Pulmonary: Present effort normal, Present breath sounds normal CARDIOVASCULAR Cardiovascular: Present regular rhythm, Present heart sounds normal, Present capillary refill normal, Present normal rate GASTROINTESTINAL Abdominal: Present soft, Present nontender, Present bowel sounds normal GENITOURINARY Genitourinary: Present exam deferred SKIN Skin: Present warm, Present dry MUSCULOSKELETAL Musculoskeletal: Present ROM normal NEUROLOGICAL Neurological: Present alert, Present oriented x 3, Present no gross motor or sensory deficits, Present other (KEEPS FALLING ASLEEP DURING EVALUATION) PSYCHOLOGICAL Psychological: Present mood/affect normal, Present judgement normal (ALLA LE MD) Results Laboratory Result Diagram: 02/13/2022402/13/205 Laboratory Laboratory Tests Test 02/13/20 02:25 White Blood Count 7.78 x10e3/uL (4.8-10.8) Red Blood Count 3.66 x10e6/uL (3.6-5.1) Hemoglobin 10.7 g/dL (12.0-16.0) Hematocrit 34.0 % (34.2-44.1) Mean Corpuscular Volume 92.9 fL (81-99) Mean Corpuscular Hemoglobin 29.2 pg (28-32) Mean Corpuscular Hemoglobin Concent 31.5 g/dL (31-35) Red Cell Distribution Width 16.6 % (11.7-14.4) Platelet Count 193 x10e3/uL (140-360) Neutrophils (%) (Auto) 77.4 % (38.7-80.0) Lymphocytes (%) (Auto) 14.7 % (18.0-39.1) Monocytes (%) (Auto) 5.5 % (4.4-11.3) Eosinophils (%) (Auto) 1.8 % (0.0-6.0) Basophils (%) (Auto) 0.3 % (0.0-1.0) Neutrophils # (Auto) 6.0 (2.1-6.9) Lymphocytes # (Auto) 1.1 (1.0-3.2) Monocytes # (Auto) 0.4 (0.2-0.8) Eosinophils # (Auto) 0.1 (0.0-0.4) Basophils # (Auto) 0.0 (0.0-0.1) Absolute Immature Granulocyte (auto 0.02 x10e3/uL (0-0.1) Sodium Level 142 mmol/L (136-145) Potassium Level 3.5 mmol/L (3.5-5.1) Chloride Level 103 mmol/L (98-107) Carbon Dioxide Level 29 mmol/L (22-29) Anion Gap 13.5 mmol/L (8-16) Blood Urea Nitrogen 24 mg/dL (7-26) Creatinine 1.56 mg/dL (0.57-1.11) Estimat Glomerular Filtration Rate 38 ML/MIN (60-) BUN/Creatinine Ratio 15 (6-25) Glucose Level 131 mg/dL (74-118) Calcium Level 9.3 mg/dL (8.4-10.2) Total Bilirubin 0.3 mg/dL (0.2-1.2) Aspartate Amino Transf (AST/SGOT) 16 IU/L (5-34) Alanine Aminotransferase (ALT/SGPT) 11 IU/L (0-55) Alkaline Phosphatase 74 IU/L (40-150) Creatine Kinase 116 IU/L (29-168) Creatine Kinase MB 3.40 ng/mL (0-5.0) Troponin I < 0.001 ng/mL (0-0.300) Total Protein 7.2 g/dL (6.5-8.1) Albumin 3.3 g/dL (3.5-5.0) Globulin 3.9 g/dL (2.3-3.5) Albumin/Globulin Ratio 0.8 (0.8-2.0) Amylase Level 67 U/L (25-125) Lipase 29 U/L (8-78) Ethyl Alcohol Level < 10.0 mg/dL (0.0-10.0) Lab results reviewed: Yes (ALLA LE MD) Imaging Imaging results reviewed: Yes Impressions Procedure: [id number] CT/CT BRAIN WO Exam Date: Exam Time: REPORT STATUS: Signed History: Syncope Comparison studies: None Technique: Axial images were obtained from the skull base to the vertex. Coronal and sagittal reconstructions obtained from the axial data. Dose modulation, iterative reconstruction, and/or weight based adjustment of the mA/kV was utilized to reduce the radiation dose to as low as reasonably achievable. Intravenous contrast: None Findings: Scalp/skull: No abnormalities. No fractures, blastic or lytic lesions. Extra-axial spaces: No masses. No fluid collections. Brain sulci: Appropriate for age. Ventricles: Normal in size and configuration. No hydrocephalus. Parenchyma: No abnormal densities. No masses, hemorrhage, acute or chronic cortical vascular insults. Sellar/suprasellar region: No abnormalities Craniocervical junction: Patent foramen magnum. No Chiari one malformation. Incidental findings: None. IMPRESSION: No abnormalities Signed by: Dr. Axel Frederick M.D. on 02/13/2020 4:13 AM Dictated By: AXEL FREDERICK MD, MD 2 Transcribed By: EMIGDIO on 02/13/20412 COPY TO: ALLA LE MD~ Procedure: [id number] DX/CHEST SINGLE (PORTABLE) Exam Date: Exam Time: REPORT STATUS: Signed EXAMINATION: CHEST SINGLE (PORTABLE) INDICATION: SOB COMPARISON: X-ray 12/30/2019 FINDINGS: TUBES and LINES: None. LUNGS: Normal lung volumes. Lungs are clear. No consolidations. PLEURA: No pleural effusion or pneumothorax. HEART AND MEDIASTINUM: The cardiomediastinal silhouette is unremarkable. BONES AND SOFT TISSUES: No acute osseous lesion. Soft tissues are unremarkable. UPPER ABDOMEN: No free air under the diaphragm. IMPRESSION: No acute thoracic radiographic abnormality. Signed by: Amish Jacome MD on 02/13/2020 5:31 AM Dictated By: AMISH JACOME MD 0 Transcribed By: EMIGDIO on 02/13/20530 COPY TO: ALLA LE MD~ (ALLA LE MD) Procedures 12 Lead ECG Interpretation ECG Interpretation : ECG: ECG 1 General Engineer: Interpreted by ED physician Date: Feb 13, 2020 Time: 02:35 Rhythm: sinus rhythm Rate: normal BPM: 75 QRS axis: normal ST segments normal: No (NON SPECIFIC CHANGES) T waves normal: Yes Other findings: no other findings Clinical Impression: non-specific ECG (ALLA LE MD) Assessment & Plan Medical Decision Making [facility] PT WITH POSSIBLE SYNCOPAL EPISODE, FOUND UNRESPONSIVE BY FAMILY, PT TOOK 3 KLONOPIN PRIOR TO EVENT CBC, CMP, EKG, CT BRAIN , CARDIAC ENZYMES, UA, UDS, ORDERED TO EVAL FOR ANEMIA, ELECTROLYTE ABNORMALITY, ELEVATED LFT'S, INTRACRANIAL PATHOLOGY(MASS, TRAUMA, BLEED) SUBSTANCE ABUSE BARIATRIC BAG ORDERED AT 150 CC/HOUR IV TIMES ONE [address] CHAPMAN (ALLA LE MD) [facility] 1151 patient after multiple hours, over 6 hours more awake now. Patient states that she had anywhere from 2-3 Klonopin before. Denies any other concerns at this time. Patient denies any SI or HI. Patient will be sent back via taxi. (WILIAN MILIAN MD) Assessment & Plan Final Impression: (1) Overuse of medication (2) Assessed for drug overuse (ALLA LE MD) Depart Disposition: HOME, SELF-CARE Last Vital Signs Date Time Temp Pulse Resp B/P (MAP) Pulse Ox O2 Delivery O2 Flow Rate FiO2 02/13/20 02:21 97.9 69 12 111/80 100 Room Air (ALLA LE MD) Home Meds Reported Medications Methenamine Hippurate (HIPREX) 1 Gm Tablet, 1 GM PO BID, #60 1 Refill 01/13/20 Ciprofloxacin Hcl (CIPRO) 500 Mg Tablet, 500 MG PO BID, #28 TAB 01/13/20 Mirtazapine (REMERON) 30 Mg Tablet, 30 MG PO HS, #30 TAB 01/13/20 Medications in the ED Multivitamins 10 ml/Folic Acid 5 mg/Thiamine HCl 500 mg/Sodium Chloride 1,016 ml @ 150 mls/hr [id number] ONCE IV ; Start 02/13/20 at 02:30; Stop 02/13/20 at 09:16 (ALLA LE MD) ALLA LE MD Feb 13, 2020 03:11 WILIAN MILIAN MD Feb 13, 2020 11:51
--- NOTE | 2020-02-13 04:16 | Diagnostic Imaging Report ---
History: Syncope Comparison studies: None Technique: Axial images were obtained from the skull base to the vertex. Coronal and sagittal reconstructions obtained from the axial data. Dose modulation, iterative reconstruction, and/or weight based adjustment of the mA/kV was utilized to reduce the radiation dose to as low as reasonably achievable. Intravenous contrast: None Findings: Scalp/skull: No abnormalities. No fractures, blastic or lytic lesions. Extra-axial spaces: No masses. No fluid collections. Brain sulci: Appropriate for age. Ventricles: Normal in size and configuration. No hydrocephalus. Parenchyma: No abnormal densities. No masses, hemorrhage, acute or chronic cortical vascular insults. Sellar/suprasellar region: No abnormalities Craniocervical junction: Patent foramen magnum. No Chiari one malformation. Incidental findings: None. IMPRESSION: No abnormalities Signed by: Dr. Axel Frederick M.D. on 02/13/2020 4:13 AM
--- NOTE | 2020-02-13 05:20 | NUR ---
SECOND ATTEMPT TO OBTAIN UA. PT OFFERED STRAIGHT CATH TO OBTAIN UA. PT REFUSED. ER NOTIFIED AND AWARE.
--- NOTE | 2020-02-13 05:34 | Diagnostic Imaging Report ---
EXAMINATION: CHEST SINGLE (PORTABLE) INDICATION: SOB COMPARISON: X-ray 12/30/2019 FINDINGS: TUBES and LINES: None. LUNGS: Normal lung volumes. Lungs are clear. No consolidations. PLEURA: No pleural effusion or pneumothorax. HEART AND MEDIASTINUM: The cardiomediastinal silhouette is unremarkable. BONES AND SOFT TISSUES: No acute osseous lesion. Soft tissues are unremarkable. UPPER ABDOMEN: No free air under the diaphragm. IMPRESSION: No acute thoracic radiographic abnormality. Signed by: Terence Raygoza MD on 02/13/2020 5:31 AM
--- NOTE | 2020-02-13 07:36 | NUR ---
attempted to contact Ana Nunez, Pt's Mother, no answer, mailbox full
--- NOTE | 2020-02-13 07:38 | NUR ---
attempted to call Eliezer Marin, Patient's Fiance, no answer, ringing busy, will attempt again in 30 mins
--- NOTE | 2020-02-13 08:21 | NUR ---
2nd attempt to call family member, no answer, voicemail full
--- NOTE | 2020-02-13 09:14 | NUR ---
3rd attempt to contact patient's mother and fiance, no answer, voicemail is full, pt not able to provide an alternate contact number to contact
[2020-02-13 12:04] VITALS: BP 131/70
== END 2020-02-13 12:06 | disposition home or self-care (01) ==
LOC: ER 02:55
DX: R55 Syncope and collapse (principal); T42.4X5A Adverse effect of benzodiazepines, initial encounter; F41.9 Anxiety disorder, unspecified; M54.9 Dorsalgia, unspecified; G89.29 Other chronic pain; Z98.84 Bariatric surgery status
CPT/HCPCS: 36415; 70450; 71045; 80053; 80320; 82150; 82550; 82553; 83690; 84484; 84702; 85025; 93005; 99284; J3411; J7030

== ENCOUNTER 2021-01-21 19:01 | Inpatient (IN) | payer SELFPAY ==
[~2021-01-21] VITALS: Ht 162.6 cm; Wt 40.8 kg
[2021-01-21] MEDS ORDERED: MULTIVITAMINS- 12 INJECTION 10 ML, FOLIC ACID MDV 5 MG, THIAMINE HCL INJ 500 MG in SODI... IV ONE (19:15)
[2021-01-21 19:36] LABS: BASOPHILS % 0.1 % (0.0-1.0); HEMATOCRIT 32.7 % (34.2-44.1); HEMOGLOBIN 10.7 g/dL (12.0-16.0); LYMPHOCYTES # (AUTO) 0.3 (1.0-3.2); LYMPHOCYTES % 2.9 % (18.0-39.1); MEAN CORPUSCULAR HEMOGLOBIN 30.5 pg (28-32); MEAN CORPUSCULAR HGB CONC 32.7 g/dL (31-35); MEAN CORPUSCULAR VOLUME 93.2 fL (81-99); MONOCYTES # (AUTO) 0.9 (0.2-0.8); MONOCYTES % 9.1 % (4.4-11.3); NEUTROPHILS # (AUTO) 8.6 (2.1-6.9); NEUTROPHILS % 87.4 % (38.7-80.0); PLATELET COUNT 216 x10e3/uL (140-360); RED BLOOD COUNT 3.51 x10e6/uL (3.6-5.1); RED CELL DISTRIBUTION WIDTH 13.4 % (11.7-14.4)
[2021-01-21 19:55] LABS: ALANINE AMINOTRANSFERASE 85 IU/L (0-55); ALBUMIN 2.7 g/dL (3.5-5.0); ALBUMIN/GLOBULIN RATIO 0.5 (0.8-2.0); ALKALINE PHOSPHATASE 167 IU/L (40-150); ANION GAP 19.9 mmol/L (8-16); BLOOD UREA NITROGEN 34 mg/dL (7-26); BUN/CREATININE RATIO 22 (6-25); CALCIUM 9.3 mg/dL (8.4-10.2); CARBON DIOXIDE 20 mmol/L (22-29); CHLORIDE 96 mmol/L (98-107); CREATINE KINASE 75 IU/L (29-168); CREATININE, SERUM 1.57 mg/dL (0.57-1.11); EST GLOMERULAR FILTRATION RATE 37 ML/MIN (60-); GLUCOSE 113 mg/dL (74-118); POTASSIUM 4.9 mmol/L (3.5-5.1); SODIUM 131 mmol/L (136-145)
[2021-01-21] MEDS ORDERED: SODIUM CHLORIDE 0.9% 1000ML 1,000 ML IV ONE (21:15)
[2021-01-21 21:23] LABS: AMPHETAMINES SCREEN,URINE POSITIVE (NEGATIVE); BENZODIAZEPINES SCREEN,URINE POSITIVE (NEGATIVE); CLARITY,URINE CLOUDY (CLEAR); COLOR,URINE YELLOW (YELLOW); KETONES,URINE NEGATIVE (NEGATIVE); LEUKOCYTE ESTERASE ,URINE SMALL (NEGATIVE); NITRITE,URINE POSITIVE (NEGATIVE); PHENCYCLIDINE SCREEN,URINE NEGATIVE (NEGATIVE); PROTEIN,URINE DIPSTICK 2+ (NEGATIVE); URINE UROBILINOGEN 1 mg/dL (0.2 - 1)
[2021-01-21] MEDS: ACETAMINOPHEN 325 MG TAB PO PRN (21:23)
[2021-01-21 21:32] LABS: BACTERIA,URINE MANY /HPF; EPITHELIAL CELLS,URINE FEW /LPF
[2021-01-21] MEDS ORDERED: SODIUM CHLORIDE 0.9% 1000ML 1,000 ML ONE (21:32)
[2021-01-21] MEDS ORDERED: ACETAMINOPHEN 325 MG TAB ONE (21:32)
[2021-01-21] MEDS: ONDANSETRON HCL INJ 2MG/ML 2ML 2 MG/ML VIAL IV PRN (21:38)
[2021-01-21] MEDS: CEFTRIAXONE 1 GM in SODIUM CHLORIDE 0.9% 50ML 50 ML IV SCH (22:13)
[2021-01-21 23:33] VITALS: BP 124/88
[2021-01-22] VITALS (7 sets, daily range): BP systolic 83–109; BP diastolic 55–80
[2021-01-22] MEDS: ACETAMINOPHEN 325 MG TAB PO PRN ×2 (03:41→08:59)
[2021-01-22 06:25] LABS: BASOPHILS % 0.1 % (0.0-1.0); HEMATOCRIT 29.2 % (34.2-44.1); HEMOGLOBIN 9.5 g/dL (12.0-16.0); LYMPHOCYTES # (AUTO) 0.2 (1.0-3.2); MEAN CORPUSCULAR HEMOGLOBIN 29.9 pg (28-32); MEAN CORPUSCULAR HGB CONC 32.5 g/dL (31-35); MEAN CORPUSCULAR VOLUME 91.8 fL (81-99); MONOCYTES # (AUTO) 0.9 (0.2-0.8); MONOCYTES % 8.7 % (4.4-11.3); NEUTROPHILS # (AUTO) 9.3 (2.1-6.9); NEUTROPHILS % 88.5 % (38.7-80.0); PLATELET COUNT 183 x10e3/uL (140-360); RED BLOOD COUNT 3.18 x10e6/uL (3.6-5.1); RED CELL DISTRIBUTION WIDTH 13.5 % (11.7-14.4)
[2021-01-22 06:55] LABS: ALBUMIN 2.2 g/dL (3.5-5.0); ALBUMIN/GLOBULIN RATIO 0.5 (0.8-2.0); ANION GAP 16.5 mmol/L (8-16); CALCIUM 8.7 mg/dL (8.4-10.2); CREATININE, SERUM 1.21 mg/dL (0.57-1.11); POTASSIUM 4.5 mmol/L (3.5-5.1)
[2021-01-22] MEDS: CEFTRIAXONE 1 GM in SODIUM CHLORIDE 0.9% 50ML 50 ML IV SCH (08:47)
[2021-01-22] MEDS ORDERED: SODIUM CHLORIDE 0.9% 100 ML ONE (08:59)
[2021-01-22] MEDS: DEXTROSE 5%/0.9% SOD CHL 1,000 ML IV SCH (15:24)
[2021-01-22] MEDS: TRAMADOL HCL 50 MG TAB PO PRN (15:25)
[2021-01-22] MEDS: ONDANSETRON HCL INJ 2MG/ML 2ML 2 MG/ML VIAL IV PRN (20:15)
[2021-01-23] VITALS: BP 109/67
[2021-01-23 01:00] LABS: CREATININE,URINE RANDOM 78.18 mg/dL (47-110); TOTAL PROTEIN, URINE 38.8 mg/dL (1-14)
[2021-01-23 04:00] VITALS: BP 110/82
[2021-01-23] MEDS: DEXTROSE 5%/0.9% SOD CHL 1,000 ML IV SCH (04:49)
[2021-01-23] MEDS: METOCLOPRAMIDE HCL 10 MG/2ML VIAL IV SCH ×3 (05:53→17:30)
[2021-01-23] MEDS: SUCRALFATE 1 GM/10 ML SUSP PO SCH ×3 (05:54→16:57)
[2021-01-23] MEDS ORDERED: SUCRALFATE 1 GM TAB PO SCH (07:30)
[2021-01-23 08:00] VITALS: BP 98/73
[2021-01-23 08:18] LABS: % IRON SATURATION 36 % (15-50); IRON 48 ug/dL (50-170); TOTAL IRON BINDING CAPACITY 133 ug/dL (261-478); TRANSFERRIN 95 mg/dL (180-382)
[2021-01-23] MEDS: CEFTRIAXONE 1 GM in SODIUM CHLORIDE 0.9% 50ML 50 ML IV SCH (08:30)
[2021-01-23] MEDS: SODIUM BICARBONATE 650 MG TAB PO SCH ×2 (08:40→16:57)
[2021-01-23 09:47] VITALS: BP 98/73
[2021-01-23] MEDS: TRAMADOL HCL 50 MG TAB PO PRN (10:25)
[2021-01-23 12:00] VITALS: BP 92/64
[2021-01-23 16:00] VITALS: BP 91/58
[2021-01-23 17:59] LABS: ANION GAP 17.7 mmol/L (8-16); CALCIUM 7.7 mg/dL (8.4-10.2); CREATININE, SERUM 0.98 mg/dL (0.57-1.11); POTASSIUM 3.7 mmol/L (3.5-5.1)
== END 2021-01-23 18:47 | disposition left against medical advice (07) | DRG 312 ==
LOC: ER 19:07 → ERHOLD 21:18 → MED/SURG 22:59 → OBSVTOIN 01-23 10:01
PROVIDERS: ADMIT Internal Medicine; ATTEND Internal Medicine
DX: R55 Syncope and collapse (principal); E46 Unspecified protein-calorie malnutrition; E87.1 Hypo-osmolality and hyponatremia; Q61.3 Polycystic kidney, unspecified; N17.9 Acute kidney failure, unspecified; E87.2 Acidosis; N39.0 Urinary tract infection, site not specified; Z98.84 Bariatric surgery status; S00.511A Abrasion of lip, initial encounter; S00.81XA Abrasion of other part of head, initial encounter; D64.9 Anemia, unspecified; Z90.49 Acquired absence of other specified parts of digestive tract; Z88.1 Allergy status to other antibiotic agents; Z88.8 Allergy status to other drugs, medicaments and biological substances; S02.2XXA Fracture of nasal bones, initial encounter for closed fracture; W18.30XA Fall on same level, unspecified, initial encounter; F41.9 Anxiety disorder, unspecified; R68.81 Early satiety; W18.39XA Other fall on same level, initial encounter
CPT/HCPCS: 36415; 70450; 70486; 72125; 80048; 80053; 80307; 80320; 81001; 82550; 82553; 82570; 82607; 82746; 83540; 84156; 84300; 84466; 84484; 84702; 85025; 85045; 86850; 86900; 87086; 87186; 99284; G0378; J0696; J2405; J2765; J3411; J7030; J7042; J7050; U0002